=== PATIENT | male | born 1980 | race Caucasian/White ===

== ENCOUNTER 2016-10-18 01:36 | Emergency (ER) | payer MEDICAID ==
[2016-10-18] MEDS ORDERED: Sodium Chloride 0.9% 1,000 ML IV ONE ×2 (01:46→02:33)
[2016-10-18] MEDS ORDERED: Sodium Chloride 0.9% 2.5 ML Syringe FLUSH PRN (01:46)
[2016-10-18] MEDS ORDERED: Sodium Chloride 0.9% 10 ML Syringe FLUSH PRN (01:46)
[2016-10-18] MEDS ORDERED: Ondansetron 4 MG/2 ML SDV IVPUSH ONE (01:48)
--- NOTE | 2016-10-18 01:49 | EDM.PDOC ---
ED HPI GENERAL MEDICAL PROBLEM - General Stated Complaint: RIGHT ABDOMINAL PAIN Time Seen by Provider: 10/18/16 01:44 - History of Present Illness INITIAL COMMENTS - FREE TEXT/NARRATIVE: HISTORY AND PHYSICAL: History of present illness: Patient 35-year-old male who presents with a concern of left-sided abdominal pain 3 and half hours she has similar episode in the past related to constipation patient denies trauma denies urinary symptoms denies history urolithiasis Review of systems: As per history of present illness and below otherwise all systems reviewed and negative. Past medical history: As per history of present illness and as reviewed below otherwise noncontributory. Surgical history: As per history of present illness and as reviewed below otherwise noncontributory. Social history: No reported history of drug or alcohol abuse. Family history: As per history of present illness and as reviewed below otherwise noncontributory. Physical exam: HEENT: Atraumatic, normocephalic, pupils reactive, negative for conjunctival pallor or scleral icterus, mucous membranes moist, throat clear, neck supple, nontender, trachea midline. Lungs: Clear to auscultation, breath sounds equal bilaterally, chest nontender. Heart: S1S2, regular, negative for clicks, rubs, or JVD. Abdomen: Soft, nondistended, nonlocalized left-sided abdominal tenderness Negative for masses or hepatosplenomegaly. Negative for costovertebral tenderness. Pelvis: Stable nontender. Genitourinary: Deferred. Rectal: Deferred. Extremities: Atraumatic, negative for cords or calf pain. Neurovascular unremarkable. Neuro: Awake, alert, oriented. Cranial nerves II through XII unremarkable. Cerebellum unremarkable. Motor and sensory unremarkable throughout. Exam nonfocal. Diagnostics: CBC CMP lipase UA urine drug screen CT abdomen and pelvis Therapeutics: saline 1 L bolus Zofran 4 mg IV Impression: #1 left-sided abdominal pain Definitive disposition and diagnosis as appropriate pending reevaluation and review of above. - Related Data Allergies Allergy/AdvReac Type Severity Reaction Status Date / Time No Known Allergies Allergy Verified 10/18/16 01:47 Home Meds: Home Meds Acetaminophen [Tylenol] 325 mg PO Q4H #10 tablet 01/12/16 [Rx] Clindamycin HCl 300 mg PO QID #20 capsule 01/12/16 [Rx] Past Medical History - Past Health History Medical/Surgical History: Denies Medical/Surgical History HEENT History: Reports: None Cardiovascular History: Reports: Heart Murmur Other Cardiovascular History: New Dx bicuspid valve- F/U with cardiology pending Respiratory History: Reports: None Gastrointestinal History: Reports: None Genitourinary History: Reports: Renal Calculus Other Genitourinary History: Hx of Kidney stones Musculoskeletal History: Reports: None Neurological History: Reports: None Psychiatric History: Reports: None Endocrine/Metabolic History: Reports: None Hematologic History: Reports: None Immunologic History: Reports: None Oncologic (Cancer) History: Reports: None Dermatologic History: Reports: None - Infectious Disease History Infectious Disease History: Reports: None - Past Surgical History Head Surgeries/Procedures: Reports: None Respiratory Surgical History: Reports: None GI Surgical History: Reports: Appendectomy Male Surgical History: Reports: Renal Calculus Endocrine Surgical History: Reports: None Musculoskeletal Surgical History: Reports: None Dermatological Surgical History: Reports: None Social & Family History - Family History Family Medical History: Noncontributory - Tobacco Use Smoking Status *Q: Current Some Day Smoker Years of Tobacco use: 6 Packs/Tins Daily: 0.5 Used Tobacco, but Quit: No Second Hand Smoke Exposure: Yes - Recreational Drug Use Recreational Drug Use: Yes Drug Use in Last 12 Months: Yes Recreational Drug Type: Reports: Marijuana/Hashish Recreational Drug Use Frequency: Weekly ED ROS GENERAL - Review of Systems Review Of Systems: ROS reveals no pertinent complaints other than HPI. ED EXAM, GENERAL - Physical Exam Exam: See Below (See dictation) Course - Orders/Labs/Meds Orders: Active Orders 24 hr Category Date Time Status Abdomen Pelvis wo Cont [CT] Stat Exams 10/18/16 01:46 Taken HYDROmorphone [Dilaudid] Med 10/18/16 02:33 Active 1 mg IVPUSH ONETIME PRN Sodium Chloride 0.9% [Normal Saline] 1,000 ml Med 10/18/16 02:33 Active IV .Bolus Sodium Chloride 0.9% [Saline Flush] Med 10/18/16 01:46 Active 10 ml FLUSH ASDIRECTED PRN Sodium Chloride 0.9% [Saline Flush] Med 10/18/16 01:46 Active 2.5 ml FLUSH ASDIRECTED PRN Saline Lock Insert [OM.PC] Stat Oth 10/18/16 01:46 Ordered Medication Orders Hydromorphone HCl (Dilaudid) 1 mg IVPUSH ONETIME PRN PRN Reason: severe pain Sodium Chloride (Normal Saline) 1,000 mls @ 999 mls/hr IV .Bolus ONE Stop: 10/18/16 03:33 Last Admin: 10/18/16 02:44 Dose: 999 mls/hr Sodium Chloride (Saline Flush) 10 ml FLUSH ASDIRECTED PRN PRN Reason: Keep Vein Open Last Admin: 10/18/16 01:58 Dose: 10 ml Sodium Chloride (Saline Flush) 2.5 ml FLUSH ASDIRECTED PRN PRN Reason: Keep Vein Open Last Admin: 10/18/16 01:57 Dose: 2.5 ml Labs: Laboratory Tests 10/18/16 10/18/16 10/18/16 Range/Units 01:45 01:45 02:38 WBC 7.99 (4.0-11.0) K/uL RBC 4.78 (4.50-5.90) M/uL Hgb 14.4 (13.0-17.0) g/dL Hct 39.8 (38.0-50.0) % MCV 83.3 (80.0-98.0) fL MCH 30.1 (27.0-32.0) pg MCHC 36.2 (31.0-37.0) g/dL RDW Std Deviation 36.4 (28.0-62.0) fl RDW Coeff of Peyton 12 (11.0-15.0) % Plt Count 220 (150-400) K/uL MPV 10.40 (7.40-12.00) fL Neut % (Auto) 59.7 (48.0-80.0) % Lymph % (Auto) 25.8 (16.0-40.0) % King % (Auto) 8.1 (0.0-15.0) % Eos % (Auto) 5.5 (0.0-7.0) % Baso % (Auto) 0.9 (0.0-1.5) % Neut # (Auto) 4.8 (1.4-5.7) K/uL Lymph # (Auto) 2.1 (0.6-2.4) K/uL King # (Auto) 0.7 (0.0-0.8) K/uL Eos # (Auto) 0.4 (0.0-0.7) K/uL Baso # (Auto) 0.1 (0.0-0.1) K/uL Sodium 139 (136-146) mmol/L Potassium 3.9 (3.5-5.1) mmol/L Chloride 106 (98-110) mmol/L Carbon Dioxide 24 (21-31) mmol/L BUN 12 (6.0-23.0) mg/dL Creatinine 1.2 (0.6-1.5) mg/dL Est Cr Clr Drug Dosing 82.33 mL/min Estimated GFR (MDRD) > 60.0 ml/min Glucose 116 H (60-110) mg/dL Calcium 8.9 (8.8-10.8) mg/dL Total Bilirubin 0.3 (0.1-1.5) mg/dL AST 13 (5-40) IU/L ALT 12 (8-54) IU/L Alkaline Phosphatase 74 (40-150) Total Protein 6.8 (6.0-8.0) g/dL Albumin 4.2 (3.5-5.0) g/dL Globulin 2.6 (2.0-3.5) g/dL Albumin/Globulin Ratio 1.6 (1.3-2.8) Lipase 383 H (7-80) U/L Urine Color Urine Appearance Urine pH (5.0-8.0) Ur Specific [place] (1.001-1.035) Urine Protein (NEGATIVE) mg/dL Urine Glucose (UA) (NEGATIVE) mg/dL Urine Ketones (NEGATIVE) mg/dL Urine Occult Blood (NEGATIVE) Urine Nitrite (NEGATIVE) Urine Bilirubin (NEGATIVE) Urine Urobilinogen (<2.0) EU/dL Ur Leukocyte Esterase (NEGATIVE) Urine RBC (0-2/HPF) Urine WBC (0-5/HPF) Ur Epithelial Cells (NONE-FEW) Urine Bacteria (NEGATIVE) Urine Mucus (NONE-MOD) Urine Opiates Screen NEGATIVE (NEGATIVE) Ur Oxycodone Screen NEGATIVE (NEGATIVE) Urine Methadone Screen NEGATIVE (NEGATIVE) Ur Barbiturates Screen NEGATIVE (NEGATIVE) Ur Phencyclidine Scrn NEGATIVE (NEGATIVE) Ur Amphetamine Screen NEGATIVE (NEGATIVE) U Methamphetamines Scrn POSITIVE (NEGATIVE) U Benzodiazepines Scrn NEGATIVE (NEGATIVE) U Cocaine Metab Screen NEGATIVE (NEGATIVE) U Marijuana (THC) Screen NEGATIVE (NEGATIVE) 10/18/16 Range/Units 02:38 WBC (4.0-11.0) K/uL RBC (4.50-5.90) M/uL Hgb (13.0-17.0) g/dL Hct (38.0-50.0) % MCV (80.0-98.0) fL MCH (27.0-32.0) pg MCHC (31.0-37.0) g/dL RDW Std Deviation (28.0-62.0) fl RDW Coeff of Peyton (11.0-15.0) % Plt Count (150-400) K/uL MPV (7.40-12.00) fL Neut % (Auto) (48.0-80.0) % Lymph % (Auto) (16.0-40.0) % King % (Auto) (0.0-15.0) % Eos % (Auto) (0.0-7.0) % Baso % (Auto) (0.0-1.5) % Neut # (Auto) (1.4-5.7) K/uL Lymph # (Auto) (0.6-2.4) K/uL King # (Auto) (0.0-0.8) K/uL Eos # (Auto) (0.0-0.7) K/uL Baso # (Auto) (0.0-0.1) K/uL Sodium (136-146) mmol/L Potassium (3.5-5.1) mmol/L Chloride (98-110) mmol/L Carbon Dioxide (21-31) mmol/L BUN (6.0-23.0) mg/dL Creatinine (0.6-1.5) mg/dL Est Cr Clr Drug Dosing mL/min Estimated GFR (MDRD) ml/min Glucose (60-110) mg/dL Calcium (8.8-10.8) mg/dL Total Bilirubin (0.1-1.5) mg/dL AST (5-40) IU/L ALT (8-54) IU/L Alkaline Phosphatase (40-150) Total Protein (6.0-8.0) g/dL Albumin (3.5-5.0) g/dL Globulin (2.0-3.5) g/dL Albumin/Globulin Ratio (1.3-2.8) Lipase (7-80) U/L Urine Color YELLOW Urine Appearance CLEAR Urine pH 5.5 (5.0-8.0) Ur Specific [place] 1.015 (1.001-1.035) Urine Protein TRACE (NEGATIVE) mg/dL Urine Glucose (UA) NEGATIVE (NEGATIVE) mg/dL Urine Ketones NEGATIVE (NEGATIVE) mg/dL Urine Occult Blood LARGE H (NEGATIVE) Urine Nitrite NEGATIVE (NEGATIVE) Urine Bilirubin NEGATIVE (NEGATIVE) Urine Urobilinogen 0.2 (<2.0) EU/dL Ur Leukocyte Esterase NEGATIVE (NEGATIVE) Urine RBC 6-10 (0-2/HPF) Urine WBC 0-1 (0-5/HPF) Ur Epithelial Cells RARE (NONE-FEW) Urine Bacteria RARE (NEGATIVE) Urine Mucus LIGHT (NONE-MOD) Urine Opiates Screen (NEGATIVE) Ur Oxycodone Screen (NEGATIVE) Urine Methadone Screen (NEGATIVE) Ur Barbiturates Screen (NEGATIVE) Ur Phencyclidine Scrn (NEGATIVE) Ur Amphetamine Screen (NEGATIVE) U Methamphetamines Scrn (NEGATIVE) U Benzodiazepines Scrn (NEGATIVE) U Cocaine Metab Screen (NEGATIVE) U Marijuana (THC) Screen (NEGATIVE) Meds: Medications Generic Name Dose Route Start Last Admin Trade Name Freq PRN Reason Stop Dose Admin Hydromorphone HCl 1 mg 10/18/16 02:33 Dilaudid IVPUSH ONETIME PRN severe pain Sodium Chloride 1,000 mls @ 999 mls/hr 10/18/16 02:33 10/18/16 02:44 Normal Saline IV 10/18/16 03:33 999 mls/hr .Bolus ONE Administration Sodium Chloride 10 ml 10/18/16 01:46 10/18/16 01:58 Saline Flush FLUSH 10 ml ASDIRECTED PRN Administration Keep Vein Open Sodium Chloride 2.5 ml 10/18/16 01:46 10/18/16 01:57 Saline Flush FLUSH 2.5 ml ASDIRECTED PRN Administration Keep Vein Open Discontinued Medications Generic Name Dose Route Start Last Admin Trade Name Freq PRN Reason Stop Dose Admin Sodium Chloride 1,000 mls @ 999 mls/hr 10/18/16 01:46 10/18/16 01:57 Normal Saline IV 10/18/16 02:46 999 mls/hr STAT ONE Administration Ketorolac Tromethamine 30 mg 10/18/16 02:33 10/18/16 02:44 Toradol IVPUSH 10/18/16 02:34 30 mg ONETIME ONE Administration Ondansetron HCl 4 mg 10/18/16 01:48 10/18/16 01:58 Zofran IVPUSH 10/18/16 01:49 4 mg ONETIME ONE Administration Tamsulosin HCl 0.4 mg 10/18/16 02:39 10/18/16 02:49 Flomax PO 10/18/16 02:40 0.4 mg ONETIME ONE Administration Departure - Departure Time of Disposition: 03:04 Disposition: Home, Self-Care 01 Condition: Good Clinical Impression: Ureterolithiasis - Discharge Information Additional Instructions: The following information is given to patients seen in the emergency department who are being discharged to home. This information is to outline your options for follow-up care. We provide all patients seen in our emergency department with a follow-up referral. The need for follow-up, as well as the timing and circumstances, are variable depending upon the specifics of your emergency department visit. If you don't have a primary care physician on staff, we will provide you with a referral. We always advise you to contact your personal physician following an emergency department visit to inform them of the circumstance of the visit and for follow-up with them and/or the need for any referrals to a consulting specialist. The emergency department will also refer you to a specialist when appropriate. This referral assures that you have the opportunity for followup care with a specialist. All of these measure are taken in an effort to provide you with optimal care, which includes your followup. Under all circumstances we always encourage you to contact your private physician who remains a resource for coordinating your care. When calling for followup care, please make the office aware that this follow-up is from your recent emergency room visit. If for any reason you are refused follow-up, please contact the [facility] emergency department at and asked to speak to the emergency department charge nurse. Follow-up urology as discussed called to schedule appointment Flomax Ultram Zofran as prescribed return as needed as discussed - My Orders Last 24 Hours: My Active Orders 10/18/16 01:46 Abdomen Pelvis wo Cont [CT] Stat Sodium Chloride 0.9% [Saline Flush] 10 ml FLUSH ASDIRECTED PRN Sodium Chloride 0.9% [Saline Flush] 2.5 ml FLUSH ASDIRECTED PRN Saline Lock Insert [OM.PC] Stat 10/18/16 02:33 HYDROmorphone [Dilaudid] 1 mg IVPUSH ONETIME PRN Sodium Chloride 0.9% [Normal Saline] 1,000 ml IV .Bolus - Assessment/Plan Last 24 Hours: My Active Orders 10/18/16 01:46 Abdomen Pelvis wo Cont [CT] Stat Sodium Chloride 0.9% [Saline Flush] 10 ml FLUSH ASDIRECTED PRN Sodium Chloride 0.9% [Saline Flush] 2.5 ml FLUSH ASDIRECTED PRN Saline Lock Insert [OM.PC] Stat 10/18/16 02:33 HYDROmorphone [Dilaudid] 1 mg IVPUSH ONETIME PRN Sodium Chloride 0.9% [Normal Saline] 1,000 ml IV .Bolus
[2016-10-18 02:18] LABS: CHLORIDE,CL 106 mmol/L (98-110); SODIUM,NA 139 mmol/L (136-146)
[2016-10-18] MEDS ORDERED: HYDROmorphone 2 MG/ML Syringe IVPUSH PRN (02:33)
[2016-10-18] MEDS ORDERED: Ketorolac 30 MG/ML SDV IVPUSH ONE (02:33)
[2016-10-18] MEDS ORDERED: Tamsulosin 0.4 MG Cap.ER PO ONE (02:39)
[2016-10-18 03:38] VITALS: BP 137/84
--- NOTE | 2016-10-18 17:25 | CT ---
EXAM DATE: 10/18/16 PATIENT'S AGE: 35 Patient: MAHSA SORENSEN Facility: [place], [place] Site . Site : 1980 Study: CT Abdomen/Pelvis wo cont [id number] 2:09:20 AM Ordering Physician: Josh Rodriguez Final Report: INDICATION: Abdominal pain left TECHNIQUE: CT abdomen and pelvis acquired without i.v. contrast. Coronal and sagittal reformats were obtained. COMPARISON: 01/10/2015 FINDINGS: Lower chest: Calcification of the aortic valve noted without interval change. Liver: Unremarkable. Spleen: Unremarkable. Pancreas: Unremarkable. Gallbladder and bile ducts: Unremarkable. Kidneys: There is a 6 mm stone present in the mid left ureter causing moderate left renal pelvicaliectasis. Punctate 1 mm stones are noted in the mid zone and lower poles of the left kidney. Very tiny densities in the right kidney measuring less than 1 mm. Adrenal glands: Unremarkable. GI tract: Mild sigmoid diverticulosis is present with no evidence of diverticulitis. The appendix is not identified. Vascular: Unremarkable. Lymph nodes: Unremarkable. Miscellaneous: Unremarkable. No pneumoperitoneum is seen. No significant ascites is noted. Pelvic Organs: Unremarkable. Bones: Unremarkable for age. IMPRESSION: 1. There is a 6 mm stone present in the mid left ureter causing moderate left renal pelvicaliectasis. Dictated by Reno Rothman MD @ 10/18/2016 2:27:11 AM Dictated by: Reno Rothman MD @ 10/18/2016 02:27:16 (Electronic Signature) Report Signed by Proxy. DESTINI
== END 2016-10-18 03:38 | disposition home or self-care (01) ==
LOC: MW.ED 01:36
DX: N20.1 Calculus of ureter (principal); F17.210 Nicotine dependence, cigarettes, uncomplicated; Z90.49 Acquired absence of other specified parts of digestive tract
CPT/HCPCS: 74176; 80053; 80305; 81001; 83690; 85025; 96361; 96374; 96375; 99284; A9270; J1885; J2405; J7040; 99283

== ENCOUNTER 2016-10-18 15:30 | Emergency (ER) | payer MEDICAID ==
[2016-10-18] MEDS ORDERED: Sodium Chloride 0.9% 1,000 ML IV ONE (16:10)
[2016-10-18] MEDS ORDERED: Ketorolac 30 MG/ML SDV IVPUSH ONE (16:10)
--- NOTE | 2016-10-18 16:29 | EDM.PDOC ---
ED HPI GENERAL MEDICAL PROBLEM - General Chief Complaint: Abdominal Pain Stated Complaint: ABDOMINAL PAIN Time Seen by Provider: 10/18/16 16:00 Source of Information: Reports: Patient History Limitations: Reports: No Limitations - History of Present Illness INITIAL COMMENTS - FREE TEXT/NARRATIVE: History of present illness: [35-year-old male comes in complaining of abdominal and flank pain. Was seen last night and diagnosed with nonobstructive renal calculi. Patient presenting today with increased symptoms and desire for further evaluation] Review of systems: As per history of present illness and below otherwise all systems reviewed and negative. Past medical history: As per history of present illness and as reviewed below otherwise noncontributory. Surgical history: As per history of present illness and as reviewed below otherwise noncontributory. Social history: No reported history of drug or alcohol abuse. Family history: As per history of present illness and as reviewed below otherwise noncontributory. Physical exam: HEENT: Atraumatic, normocephalic, pupils reactive, negative for conjunctival pallor or scleral icterus, mucous membranes moist, throat clear, neck supple, nontender, trachea midline. Lungs: Clear to auscultation, breath sounds equal bilaterally, chest nontender. Heart: S1S2, regular, negative for clicks, rubs, or JVD. Abdomen: Soft, nondistended, nontender. Negative for masses or hepatosplenomegaly. Negative for costovertebral tenderness. Pelvis: Stable nontender. Genitourinary: Deferred. Rectal: Deferred. Extremities: Atraumatic, negative for cords or calf pain. Neurovascular unremarkable. Neuro: Awake, alert, oriented. Cranial nerves II through XII unremarkable. Cerebellum unremarkable. Motor and sensory unremarkable throughout. Exam nonfocal. Spoke with patient at length he indicated the Toradol had helped his discomfort and that he understood that he had needed to follow-up with urology and he intends to do so tomorrow. Indicates that he is ready to go home. Diagnostics: [] Therapeutics: [IV fluids, Toradol] Impression: [Nonobstructive uropathy] Plan: [Hydrate, follow up with urology has been provided (last night)] Definitive disposition and diagnosis as appropriate pending reevaluation and review of above. abdomen Pain Score (Numeric/FACES): 6 - Related Data Allergies Allergy/AdvReac Type Severity Reaction Status Date / Time No Known Allergies Allergy Verified 10/18/16 15:33 Home Meds: Home Meds Ondansetron [Zofran] 4 mg PO ASDIRECTED 10/18/16 [History] Tamsulosin [Flomax] 0 tab PO DAILY 10/18/16 [History] traMADol HCl [Ultram] 50 mg PO ASDIRECTED 10/18/16 [History] Past Medical History - Past Health History Medical/Surgical History: Denies Medical/Surgical History HEENT History: Reports: None Cardiovascular History: Reports: Heart Murmur Other Cardiovascular History: New Dx bicuspid valve- F/U with cardiology pending Respiratory History: Reports: None Gastrointestinal History: Reports: None Genitourinary History: Reports: Renal Calculus Other Genitourinary History: Hx of Kidney stones Musculoskeletal History: Reports: None Neurological History: Reports: None Psychiatric History: Reports: None Endocrine/Metabolic History: Reports: None Hematologic History: Reports: None Immunologic History: Reports: None Oncologic (Cancer) History: Reports: None Dermatologic History: Reports: None - Infectious Disease History Infectious Disease History: Reports: None - Past Surgical History Head Surgeries/Procedures: Reports: None Respiratory Surgical History: Reports: None GI Surgical History: Reports: Appendectomy Male Surgical History: Reports: Renal Calculus Endocrine Surgical History: Reports: None Musculoskeletal Surgical History: Reports: None Dermatological Surgical History: Reports: None Social & Family History - Family History Family Medical History: Noncontributory - Tobacco Use Smoking Status *Q: Current Every Day Smoker Years of Tobacco use: 6 Packs/Tins Daily: 1 Used Tobacco, but Quit: No Second Hand Smoke Exposure: Yes - Recreational Drug Use Recreational Drug Use: Yes Drug Use in Last 12 Months: Yes Recreational Drug Type: Reports: Marijuana/Hashish Recreational Drug Use Frequency: Weekly ED ROS GENERAL - Review of Systems Review Of Systems: See Below (History of present illness) ED EXAM, GENERAL - Physical Exam Exam: See Below (History of present illness) Course - Vital Signs Last Recorded V/S: Last Vital Signs Temp 36.6 C 10/18/16 15:37 Pulse 80 10/18/16 15:37 Resp 18 10/18/16 15:37 BP 133/70 10/18/16 15:37 Pulse Ox 75 L 10/18/16 15:37 - Orders/Labs/Meds Orders: Active Orders 24 hr Category Date Time Status UA W/MICROSCOPIC [URIN] Stat Lab 10/18/16 18:00 Received Meds: Medications Discontinued Medications Generic Name Dose Route Start Last Admin Trade Name Priscila PRN Reason Stop Dose Admin Sodium Chloride 1,000 mls @ 999 mls/hr 10/18/16 16:10 10/18/16 16:24 Normal Saline IV 10/18/16 17:10 999 mls/hr STAT ONE Administration Ketorolac Tromethamine 30 mg 10/18/16 16:10 10/18/16 16:23 Toradol IVPUSH 10/18/16 16:11 30 mg ONETIME ONE Administration Departure - Departure Time of Disposition: 18:10 Disposition: Home, Self-Care 01 Condition: Good Clinical Impression: Ureteric colic - Discharge Information Forms: ED Department Discharge Additional Instructions: The following information is given to patients seen in the emergency department who are being discharged to home. This information is to outline your options for follow-up care. We provide all patients seen in our emergency department with a follow-up referral. The need for follow-up, as well as the timing and circumstances, are variable depending upon the specifics of your emergency department visit. If you don't have a primary care physician on staff, we will provide you with a referral. We always advise you to contact your personal physician following an emergency department visit to inform them of the circumstance of the visit and for follow-up with them and/or the need for any referrals to a consulting specialist. The emergency department will also refer you to a specialist when appropriate. This referral assures that you have the opportunity for follow-up care with a specialist. All of these measure are taken in an effort to provide you with optimal care, which includes your follow-up. Under all circumstances we always encourage you to contact your private physician who remains a resource for coordinating your care. When calling for follow-up care, please make the office aware that this follow-up is from your recent emergency room visit. If for any reason you are refused follow-up, please contact the [facility] Emergency Department at and asked to speak to the emergency department charge nurse. Continue to hydrate as discussed Follow-up with urology that was provided to last night Return to ED as needed as discussed - My Orders Last 24 Hours: My Active Orders 10/18/16 18:00 UA W/MICROSCOPIC [URIN] Stat - Assessment/Plan Last 24 Hours: My Active Orders 10/18/16 18:00 UA W/MICROSCOPIC [URIN] Stat
[2016-10-18 18:25] VITALS: BP 125/70
== END 2016-10-18 18:23 | disposition home or self-care (01) ==
LOC: MW.ED 15:30
DX: N39.9 Disorder of urinary system, unspecified (principal); N23 Unspecified renal colic; F17.210 Nicotine dependence, cigarettes, uncomplicated; Z79.899 Other long term (current) drug therapy; Z87.442 Personal history of urinary calculi; Z90.49 Acquired absence of other specified parts of digestive tract
CPT/HCPCS: 81001; 96361; 96374; 99284; J1885; J7040; 99282

== ENCOUNTER 2019-03-16 11:28 | Emergency (ER) | payer BC, MEDICAID ==
[2019-03-16] MEDS ORDERED: Lidocaine 2% Viscous Solution 15 ML Cup PO ONE (11:32)
[2019-03-16] MEDS ORDERED: Benzocaine 20% Topical Spray UD MUCMEM ONE (11:32)
--- NOTE | 2019-03-16 11:32 | EDM.PDOC ---
ED HPI GENERAL MEDICAL PROBLEM - General Stated Complaint: TOOTH PAIN Time Seen by Provider: 03/16/19 11:29 Source of Information: Reports: Patient History Limitations: Reports: No Limitations - History of Present Illness INITIAL COMMENTS - FREE TEXT/NARRATIVE: HISTORY AND PHYSICAL: History of present illness: Patient is a 38-year-old male who presents to the emergency room today with complaints of dental pain. He states that he felt a piece of his tooth in the posterior right molar break off, previously had already a partial fracture of that tooth. Since then he has had some redness and tenderness along the gumline. He is concerned that this is now infected. He states he did call and make a dental appointment in [place] to have dental extraction. Unable to be seen until next week. Patient denies any fever, chills, headache, change in vision, syncope or near syncope. Denies any chest pain, back pain, shortness of breath or cough. Denies any GI or symptoms. Patient has been eating and drinking appropriately. Review of systems: As per history of present illness and below otherwise all systems reviewed and negative. Past medical history: As per history of present illness and as reviewed below otherwise noncontributory. Surgical history: As per history of present illness and as reviewed below otherwise noncontributory. Social history: See social history for further information Family history: As per history of present illness and as reviewed below otherwise noncontributory. Physical exam: General: Well-developed and well-nourished 38-year-old male. Alert and oriented. Nontoxic appearing and in no acute distress. HEENT: Atraumatic, normocephalic, pupils equal and reactive bilaterally, negative for conjunctival pallor or scleral icterus, mucous membranes moist, TMs normal bilaterally, throat clear, neck supple, nontender, trachea midline. No drooling or trismus noted. No meningeal signs. No hot potato voice noted. Lungs: Clear to auscultation, breath sounds equal bilaterally, chest nontender. Heart: S1S2, regular rate and rhythm without overt murmur Abdomen: Soft, nondistended, nontender. Skin: Intact, warm, dry. No lesions or rashes noted. Extremities: Atraumatic, moves all extremities per self without difficulty or deficits, negative for cords or calf pain. Neurovascular unremarkable. Neuro: Awake, alert, oriented. Cranial nerves II through XII unremarkable. Cerebellum unremarkable. Motor and sensory unremarkable throughout. Exam nonfocal. Notes: We discussed the importance of following up with his dentist. Supportive care measures were reviewed and discussed. Voices understanding and is agreeable to plan of care. Denies any further questions or concerns at this time. Diagnostics: None Therapeutics: Dental Balls Prescription: Clindamycin Ultram (#20) Impression: Broken tooth r/o dental abscess Plan: 1. Please take the antibiotic as prescribed. 2. Tylenol and/or ibuprofen as needed for pain management. "Tooth Balls" have been given to you; apply along the gumline every 2-3 hours as needed. Do not swallow these; external use only. 3. Follow-up with a dentist for definitive care. Return to the ED as needed and as discussed. Definitive disposition and diagnosis as appropriate pending reevaluation and review of above. - Related Data Allergies Allergy/AdvReac Type Severity Reaction Status Date / Time No Known Allergies Allergy Verified 10/18/16 15:33 Home Meds: Home Meds Acetaminophen [Tylenol] 03/16/19 [History] Clindamycin HCl 300 mg PO TID 10 Days #30 capsule 03/16/19 [Rx] Ibuprofen 03/16/19 [History] traMADol [Ultram] 50 mg PO Q4H PRN #20 tab 03/16/19 [Rx] Past Medical History - Past Health History Medical/Surgical History: Denies Medical/Surgical History HEENT History: Reports: None Cardiovascular History: Reports: Heart Murmur Other Cardiovascular History: New Dx bicuspid valve- F/U with cardiology pending Respiratory History: Reports: None Gastrointestinal History: Reports: None Genitourinary History: Reports: Renal Calculus Other Genitourinary History: Hx of Kidney stones Musculoskeletal History: Reports: None Neurological History: Reports: None Psychiatric History: Reports: None Endocrine/Metabolic History: Reports: None Hematologic History: Reports: None Immunologic History: Reports: None Oncologic (Cancer) History: Reports: None Dermatologic History: Reports: None - Infectious Disease History Infectious Disease History: Reports: None - Past Surgical History Head Surgeries/Procedures: Reports: None Respiratory Surgical History: Reports: None GI Surgical History: Reports: Appendectomy Male Surgical History: Reports: Renal Calculus Endocrine Surgical History: Reports: None Musculoskeletal Surgical History: Reports: None Dermatological Surgical History: Reports: None Social & Family History - Family History Family Medical History: Noncontributory ED ROS ENT - Review of Systems Review Of Systems: Comprehensive ROS is negative, except as noted in HPI. ED EXAM, ENT - Physical Exam Exam: See Below (See dictation) Course - Vital Signs Last Recorded V/S: Last Vital Signs Temp 95.1 F L 03/16/19 11:42 Pulse 66 03/16/19 11:42 Resp 18 03/16/19 11:42 BP 141/71 H 03/16/19 11:42 Pulse Ox 96 03/16/19 11:42 - Orders/Labs/Meds Meds: Medications Discontinued Medications Generic Name Dose Route Start Last Admin Trade Name Freq PRN Reason Stop Dose Admin Benzocaine 2 each 03/16/19 11:32 Hurricaine One 20% MUCMEM 03/16/19 11:33 ONETIME ONE Lidocaine HCl 15 ml 03/16/19 11:32 Xylocaine 2% Viscous PO 03/16/19 11:33 ONETIME ONE Departure - Departure Time of Disposition: 11:47 Disposition: Home, Self-Care 01 Clinical Impression: Dental abscess Broken tooth Qualifiers: Encounter type: initial encounter Fracture type: closed Qualified Code(s): S02.5XXA - Fracture of tooth (traumatic), initial encounter for closed fracture - Discharge Information Prescriptions: Clindamycin HCl 300 mg PO TID 10 Days #30 capsule traMADol [Ultram] 50 mg PO Q4H PRN #20 tab PRN Reason: Pain Instructions: Dental Abscess, [id number] Additional Instructions: The following information is given to patients seen in the emergency department who are being discharged to home. This information is to outline your options for follow-up care. We provide all patients seen in our emergency department with a follow-up referral. The need for follow-up, as well as the timing and circumstances, are variable depending upon the specifics of your emergency department visit. If you don't have a primary care physician on staff, we will provide you with a referral. We always advise you to contact your personal physician following an emergency department visit to inform them of the circumstance of the visit and for follow-up with them and/or the need for any referrals to a consulting specialist. The emergency department will also refer you to a specialist when appropriate. This referral assures that you have the opportunity for follow-up care with a specialist. All of these measure are taken in an effort to provide you with optimal care, which includes your follow-up. Under all circumstances we always encourage you to contact your private physician who remains a resource for coordinating your care. When calling for follow-up care, please make the office aware that this follow-up is from your recent emergency room visit. If for any reason you are refused follow-up, please contact the [facility] Emergency Department at and asked to speak to the emergency department charge nurse. [facility] [address] [place] [id number] [id number] 1. Please take the antibiotic as prescribed. 2. Tylenol and/or ibuprofen as needed for pain management. "Tooth Balls" have been given to you; apply along the gumline every 2-3 hours as needed. Do not swallow these; external use only. 3. Follow-up with a dentist for definitive care. Return to the ED as needed and as discussed.
[2019-03-16 12:00] VITALS: BP 142/75; PULSE 60
== END 2019-03-16 12:04 | disposition home or self-care (01) ==
LOC: MW.ED 11:28
DX: K04.7 Periapical abscess without sinus (principal); K03.81 Cracked tooth
CPT/HCPCS: 99282; A9270; 99283

== ENCOUNTER 2019-11-25 05:00 | Emergency (ER) | payer SELFPAY ==
[2019-11-25] MEDS ORDERED: Ondansetron 4 MG/2 ML SDV IVPUSH ONE (05:14)
[2019-11-25] MEDS ORDERED: Alum Hydrox/Mag Hydrox/Simeth 15 ML, Lidocaine 2% 5 ML PO ONE ×2 (05:14)
[2019-11-25] MEDS ORDERED: Sodium Chloride 0.9% 2.5 ML Syringe FLUSH PRN (05:14)
[2019-11-25] MEDS ORDERED: Pantoprazole 40 MG in Sodium Chloride 0.9% 10 ML IV ONE (05:14)
[2019-11-25] MEDS ORDERED: Sodium Chloride 0.9% 10 ML Syringe FLUSH PRN (05:14)
--- NOTE | 2019-11-25 05:19 | EDM.PDOC ---
ED HPI GENERAL MEDICAL PROBLEM - General Chief Complaint: Abdominal Pain Stated Complaint: ABDOMINAL PAIN Time Seen by Provider: 11/25/19 05:10 - History of Present Illness INITIAL COMMENTS - FREE TEXT/NARRATIVE: HISTORY AND PHYSICAL: History of present illness: This is a 39-year-old gentleman who presents ER today secondary to left upper quadrant abdominal pain started at 3 in the morning. Patient denies any recent fevers, shakes, chills, vomiting or diarrhea. Patient reports he does feel nauseous secondary to the abdominal pain. Patient has any dysuria frequency urgency. Patient has any melena or bright red blood per rectum. Patient denies any hematuria. Patient has any recent cough cold or runny nose. Patient denies any history of hypertension, diabetes, liver, lung, kidney problems. Patient reports he did have a kidney stone in the past that required stents. Patient is status post an appendectomy. Patient denies any tobacco alcohol or drugs other than marijuana. Patient has no known drug allergies. Review of systems: As per history of present illness and below otherwise all systems reviewed and negative. Past medical history: As per history of present illness and as reviewed below otherwise noncontributory. Surgical history: As per history of present illness and as reviewed below otherwise noncontributory. Social history: No reported history of drug or alcohol abuse. Family history: As per history of present illness and as reviewed below otherwise noncontributory. Physical exam: Constitutional: Patient is oriented to person, place, and time. Appears well- developed and well-nourished. No distress. HEENT: Moist mucous membranes Head: Normocephalic and atraumatic Eyes: Right eye exhibits no discharge. Left eye exhibits no discharge. No scleral icterus Neck: Normal range of motion. No tracheal deviation present. Cardiovascular: Normal rate and regular rhythm. Pulmonary: Effort normal, no respiratory distress. Abd: Soft, nondistended, no rebound/guarding, no psoas or obturator signs, no tenderness at Mcberney's point, no Natarajan's sign. Pt does not present with an exam that would be consistent with an acute surgical abdomen at this time. Tender to palpation left upper quadrant and midepigastric region. Musculoskeletal: Normal range of motion Neurologic: Alert and oriented to person, place and time. Skin: [place], warm and dry. Psychiatric: Normal mood and affect. Behavior is normal. Judgment and thought content normal. Nursing note and vital signs have been reviewed Diagnostics: CBC, CMP, troponin, EKG, lipase, UA. CT abdomen pelvis without contrast Therapeutics: GI cocktail Protonix Zofran NSS 6:02 AM: Patient reevaluated and reports that the medication he was given is significantly reduced he discomfort in his left upper quadrant. I have reviewed the blood test results with the patient. Thus far all his labs look within normal limits. We are still awaiting his CT scan of the abdomen pelvis. 6:34 AM: CT scan reports no significant abnormality identified in the abdomen or pelvis. Patient reevaluated and reports discussed with the patient. Patient reports he feels much better and feels comfortable with going home at this time. Assessment and plan: 39-year-old who presents the ER today with sudden onset of acute left upper quadrant abdominal discomfort that occurred at approximately 3 AM. Patient's pain is nonexertional and occurred while he was resting. Pain does not appear to be typical for cardiac origin. CT scan rule out ruptured viscus. Patient reports significant improvement with GI cocktail and Protonix. Patient will be discharged home with a prescription for Zofran as well as Prilosec for treatment of possible gastritis. Patient currently is feeling much more comfortable and is resting. Reassessment at the time of disposition demonstrates that the patient is in no acute distress. The patient has remained stable throughout the entire ED visit and is without objective evidence for acute process requiring urgent intervention or hospitalization. The patient is stable for discharge, counseling is provided as documented above, discussed symptomatic treatment and specific conditions for return. I have spoken with the patient/caregive and discussed todays findings, in addition to providing specific details for the plan of care. Questions are answered and there is agreement with the plan. Definitive disposition and diagnosis as appropriate pending reevaluation and review of above. abdomen Pain Score (Numeric/FACES): 5 - Related Data Allergies Allergy/AdvReac Type Severity Reaction Status Date / Time No Known Allergies Allergy Verified 11/25/19 05:13 Home Meds: Home Meds Omeprazole Magnesium [Prilosec Otc] 20 mg PO BID #30 tablet. 11/25/19 [Rx] Ondansetron [Zofran ODT] 4 mg PO Q6H PRN #12 tab.dis 11/25/19 [Rx] Past Medical History - Past Health History Medical/Surgical History: Denies Medical/Surgical History HEENT History: Reports: None Cardiovascular History: Reports: Heart Murmur Other Cardiovascular History: New Dx bicuspid valve- F/U with cardiology pending Respiratory History: Reports: None Gastrointestinal History: Reports: None Genitourinary History: Reports: Renal Calculus Other Genitourinary History: Hx of Kidney stones Musculoskeletal History: Reports: None Neurological History: Reports: None Psychiatric History: Reports: None Endocrine/Metabolic History: Reports: None Hematologic History: Reports: None Immunologic History: Reports: None Oncologic (Cancer) History: Reports: None Dermatologic History: Reports: None - Infectious Disease History Infectious Disease History: Reports: None - Past Surgical History Head Surgeries/Procedures: Reports: None Respiratory Surgical History: Reports: None GI Surgical History: Reports: Appendectomy Male Surgical History: Reports: Renal Calculus Endocrine Surgical History: Reports: None Musculoskeletal Surgical History: Reports: None Dermatological Surgical History: Reports: None Social & Family History - Family History Family Medical History: Noncontributory ED ROS GENERAL - Review of Systems Review Of Systems: Comprehensive ROS is negative, except as noted in HPI. ED EXAM, GENERAL - Physical Exam Exam: See Below EKG INTERPRETATION EKG Interpretation Comments: EKG: Normal sinus bradycardia heart rate of [address]-T wave abnormalities Normal axis No evidence of ST elevation MD As interpreted by ER physician: Calvin Britton - Vital Signs Last Recorded V/S: Last Vital Signs Temp 96.5 F L 11/25/19 05:04 Pulse 50 L 11/25/19 06:25 Resp 18 11/25/19 05:04 BP 108/60 11/25/19 06:25 Pulse Ox 96 11/25/19 06:25 - Orders/Labs/Meds Orders: Active Orders 24 hr Category Date Time Status EKG Documentation Completion [RC] STAT Care 11/25/19 05:18 Active Sodium Chloride 0.9% [Saline Flush] Med 11/25/19 05:14 Active 10 ml FLUSH ASDIRECTED PRN Sodium Chloride 0.9% [Saline Flush] Med 11/25/19 05:14 Active 2.5 ml FLUSH ASDIRECTED PRN Saline Lock Insert [OM.PC] Stat Oth 11/25/19 05:14 Ordered Medication Orders Sodium Chloride (Saline Flush) 10 ml FLUSH ASDIRECTED PRN PRN Reason: Keep Vein Open Sodium Chloride (Saline Flush) 2.5 ml FLUSH ASDIRECTED PRN PRN Reason: Keep Vein Open Labs: Laboratory Tests 11/25/19 11/25/19 11/25/19 Range/Units 05:13 05:13 05:13 WBC 5.94 (4.0-11.0) K/uL RBC 5.04 (4.50-5.90) M/uL Hgb 15.1 (13.0-17.0) g/dL Hct 43.5 (38.0-50.0) % MCV 86.3 (80.0-98.0) fL MCH 30.0 (27.0-32.0) pg MCHC 34.7 (31.0-37.0) g/dL RDW Std Deviation 39.0 (28.0-62.0) fl RDW Coeff of Peyton 13 (11.0-15.0) % Plt Count 184 (150-400) K/uL MPV 10.00 (7.40-12.00) fL Neut % (Auto) 38.2 L (48.0-80.0) % Lymph % (Auto) 41.1 H (16.0-40.0) % [place] % (Auto) 10.6 (0.0-15.0) % Eos % (Auto) 8.9 H (0.0-7.0) % Baso % (Auto) 1.2 (0.0-1.5) % Neut # (Auto) 2.3 (1.4-5.7) K/uL Lymph # (Auto) 2.4 (0.6-2.4) K/uL [place] # (Auto) 0.6 (0.0-0.8) K/uL Eos # (Auto) 0.5 (0.0-0.7) K/uL Baso # (Auto) 0.1 (0.0-0.1) K/uL D-Dimer, Quantitative < 0.19 (0.0-0.50) mg/L FEU Sodium 137 (136-148) mmol/L Potassium 4.5 (3.5-5.1) mmol/L Chloride 104 (98-107) mmol/L Carbon Dioxide 30.4 (21.0-32.0) mmol/L BUN 16 (7.0-18.0) mg/dL Creatinine 1.1 (0.8-1.3) mg/dL Est Cr Clr Drug Dosing 89.27 mL/min Estimated GFR (MDRD) > 60.0 ml/min Glucose 103 (74-106) mg/dL Calcium 8.6 (8.5-10.1) mg/dL Total Bilirubin 0.1 L (0.2-1.0) mg/dL AST 13 L (15-37) IU/L ALT 22 (14-63) IU/L Alkaline Phosphatase 64 (46-116) U/L Troponin I < 0.050 (0.000-0.056) ng/mL Total Protein 7.2 (6.4-8.2) g/dL Albumin 3.9 (3.4-5.0) g/dL Globulin 3.3 (2.6-4.0) g/dL Albumin/Globulin Ratio 1.2 (0.9-1.6) Lipase 260 (73-393) U/L Urine Color Urine Appearance Urine pH (5.0-8.0) Ur Specific [place] (1.001-1.035) Urine Protein (NEGATIVE) mg/dL Urine Glucose (UA) (NEGATIVE) mg/dL Urine Ketones (NEGATIVE) mg/dL Urine Occult Blood (NEGATIVE) Urine Nitrite (NEGATIVE) Urine Bilirubin (NEGATIVE) Urine Urobilinogen (<2.0) EU/dL Ur Leukocyte Esterase (NEGATIVE) 11/25/19 Range/Units 05:18 WBC (4.0-11.0) K/uL RBC (4.50-5.90) M/uL Hgb (13.0-17.0) g/dL Hct (38.0-50.0) % MCV (80.0-98.0) fL MCH (27.0-32.0) pg MCHC (31.0-37.0) g/dL RDW Std Deviation (28.0-62.0) fl RDW Coeff of [place] (11.0-15.0) % Plt Count (150-400) K/uL MPV (7.40-12.00) fL Neut % (Auto) (48.0-80.0) % Lymph % (Auto) (16.0-40.0) % [place] % (Auto) (0.0-15.0) % Eos % (Auto) (0.0-7.0) % Baso % (Auto) (0.0-1.5) % Neut # (Auto) (1.4-5.7) K/uL Lymph # (Auto) (0.6-2.4) K/uL [place] # (Auto) (0.0-0.8) K/uL Eos # (Auto) (0.0-0.7) K/uL Baso # (Auto) (0.0-0.1) K/uL D-Dimer, Quantitative (0.0-0.50) mg/L FEU Sodium (136-148) mmol/L Potassium (3.5-5.1) mmol/L Chloride (98-107) mmol/L Carbon Dioxide (21.0-32.0) mmol/L BUN (7.0-18.0) mg/dL Creatinine (0.8-1.3) mg/dL Est Cr Clr Drug Dosing mL/min Estimated GFR (MDRD) ml/min Glucose (74-106) mg/dL Calcium (8.5-10.1) mg/dL Total Bilirubin (0.2-1.0) mg/dL AST (15-37) IU/L ALT (14-63) IU/L Alkaline Phosphatase (46-116) U/L Troponin I (0.000-0.056) ng/mL Total Protein (6.4-8.2) g/dL Albumin (3.4-5.0) g/dL Globulin (2.6-4.0) g/dL Albumin/Globulin Ratio (0.9-1.6) Lipase (73-393) U/L Urine Color YELLOW Urine Appearance CLEAR Urine pH 6.5 (5.0-8.0) Ur Specific [place] 1.025 (1.001-1.035) Urine Protein NEGATIVE (NEGATIVE) mg/dL Urine Glucose (UA) NEGATIVE (NEGATIVE) mg/dL Urine Ketones NEGATIVE (NEGATIVE) mg/dL Urine Occult Blood NEGATIVE (NEGATIVE) Urine Nitrite NEGATIVE (NEGATIVE) Urine Bilirubin NEGATIVE (NEGATIVE) Urine Urobilinogen 0.2 (<2.0) EU/dL Ur Leukocyte Esterase NEGATIVE (NEGATIVE) Meds: Medications Generic Name Dose Route Start Last Admin Trade Name Freq PRN Reason Stop Dose Admin Sodium Chloride 10 ml 11/25/19 05:14 Saline Flush FLUSH ASDIRECTED PRN Keep Vein Open Sodium Chloride 2.5 ml 11/25/19 05:14 Saline Flush FLUSH ASDIRECTED PRN Keep Vein Open Discontinued Medications Generic Name Dose Route Start Last Admin Trade Name Priscila PRN Reason Stop Dose Admin Al Hydroxide/Mg Hydroxide 15 0 ml 11/25/19 05:14 11/25/19 05:24 ml/ Lidocaine HCl 5 ml PO 11/25/19 05:15 1 each ONETIME ONE Administration Pantoprazole Sodium 40 mg/ 10 mls @ 300 mls/hr 11/25/19 05:14 11/25/19 05:27 Sodium Chloride IV 11/25/19 05:15 300 mls/hr NOW ONE Administration Ondansetron HCl 4 mg 11/25/19 05:14 11/25/19 05:24 Zofran IVPUSH 11/25/19 05:15 4 mg ONETIME ONE Administration Departure - Departure Time of Disposition: 06:35 Disposition: Home, Self-Care 01 Condition: Good Clinical Impression: Abdominal pain, Gastritis - Discharge Information Instructions: Gastritis, Adult, [id number], Abdominal Pain, Adult, [id number] Referrals: PCP,None [Primary Care Provider] - Forms: ED Department Discharge Additional Instructions: Although the etiology of your abdominal pain today is not completely clear, we have been able to eliminate any life-threatening causes of the pain with the blood tests and imaging that we have performed today. The pain appears to be most likely related to gastritis or early ulcer disease. You will be started on Prilosec to help coat your stomach as well as Zofran to help you with the symptoms of nausea. Please follow-up with your family doctor for referral to see a cytology laboratory manager if these pains persist. The following information is given to patients seen in the emergency department who are being discharged to home. This information is to outline your options for follow-up care. We provide all patients seen in our emergency department with a follow-up referral. The need for follow-up, as well as the timing and circumstances, are variable depending upon the specifics of your emergency department visit. If you don't have a primary care physician on staff, we will provide you with a referral. We always advise you to contact your personal physician following an emergency department visit to inform them of the circumstance of the visit and for follow-up with them and/or the need for any referrals to a consulting specialist. The emergency department will also refer you to a specialist when appropriate. This referral assures that you have the opportunity for follow-up care with a specialist. All of these measure are taken in an effort to provide you with optimal care, which includes your follow-up. Under all circumstances we always encourage you to contact your private physician who remains a resource for coordinating your care. When calling for follow-up care, please make the office aware that this follow-up is from your recent emergency room visit. If for any reason you are refused follow-up, please contact the [facility] Emergency Department at and asked to speak to the emergency department charge nurse. Parveen Jenn [facility] - [facility] Medicine [address] [place] [id number] Sepsis Event Note (ED) - Evaluation Sepsis Screening Result: No Definite Risk - Focused Exam Vital Signs: Vital Signs Temp Pulse Resp BP Pulse Ox 11/25/19 06:25 50 L 108/60 96 11/25/19 05:04 96.5 F L 65 18 145/88 H 98 - My Orders Last 24 Hours: My Active Orders 11/25/19 05:14 Sodium Chloride 0.9% [Saline Flush] 10 ml FLUSH ASDIRECTED PRN Sodium Chloride 0.9% [Saline Flush] 2.5 ml FLUSH ASDIRECTED PRN Saline Lock Insert [OM.PC] Stat 11/25/19 05:18 EKG Documentation Completion [RC] STAT - Assessment/Plan Last 24 Hours: My Active Orders 11/25/19 05:14 Sodium Chloride 0.9% [Saline Flush] 10 ml FLUSH ASDIRECTED PRN Sodium Chloride 0.9% [Saline Flush] 2.5 ml FLUSH ASDIRECTED PRN Saline Lock Insert [OM.PC] Stat 11/25/19 05:18 EKG Documentation Completion [RC] STAT
[2019-11-25 05:46] LABS: BLOOD UREA NITROGEN,BUN 16 mg/dL (7.0-18.0); CARBON DIOXIDE,CO2 30.4 mmol/L (21.0-32.0); CHLORIDE,CL 104 mmol/L (98-107); GLUCOSE RANDOM 103 mg/dL (74-106); LIPASE 260 U/L (73-393); POTASSIUM,K 4.5 mmol/L (3.5-5.1); SODIUM,NA 137 mmol/L (136-148)
--- NOTE | 2019-11-25 06:29 | CT ---
INDICATION: Left upper quadrant abdominal pain. TECHNIQUE: CT of the abdomen and pelvis without intravenous contrast. Coronal and sagittal reconstructions. COMPARISON: CT of the abdomen and pelvis 10/18/2016. FINDINGS: The previously seen left ureteral stone is no longer present. No obstructing urinary calculi on today`s exam. There are few tiny 1-2 mm nonobstructing renal caliceal stones bilaterally. No hydronephrosis or ureteral dilation. The unenhanced bladder and prostate are normal in appearance. New mild hepatomegaly measuring 22.5 cm in length today compared to 20 cm previously. The liver is increased in density compared to the spleen which can be seen with iron deposition disorders and use of certain medications. New mild splenomegaly measuring 14 cm in length today compared to 11 cm previously. The unenhanced gallbladder, pancreas, and adrenal glands are normal in appearance. No bowel dilation. The appendix is not identified, however there are no secondary signs of inflammation in the right lower quadrant. No intraperitoneal free air or fluid. No lymphadenopathy. The bones are unremarkable. The lung bases are clear. Mitral annulus calcification. IMPRESSION: 1. No acute findings in the abdomen or pelvis on this noncontrast exam. 2. Resolution of the previously seen left ureteral stone. 3. Few tiny bilateral nonobstructing renal caliceal stones. No obstructing urinary calculi on today`s exam. 4. New mild hepatosplenomegaly. 5. The liver is increased in density compared to the spleen which can be seen with iron deposition disorders and use of certain medications. Correlate with patient history. Please note that all CT scans at this facility use dose modulation, iterative reconstruction, and/or weight-based dosing when appropriate to reduce radiation dose to as low as reasonably achievable. Dictated by Anabela Glez MD @ Nov 25 2019 6:14AM Signed by Dr. Anabela Glez @ Nov 25 2019 6:27AM
[2019-11-25 07:00] VITALS: BP 122/77; PULSE 63
== END 2019-11-25 06:48 | disposition home or self-care (01) ==
LOC: MW.ED 05:00
DX: K29.70 Gastritis, unspecified, without bleeding (principal); Z79.899 Other long term (current) drug therapy
CPT/HCPCS: 36415; 74176; 80053; 81003; 83690; 84484; 85025; 85379; 93005; 96374; 96375; 99284; A9270; C9113; J2405; J7050

== ENCOUNTER 2020-02-10 13:11 | Emergency (ER) | payer SELFPAY ==
[2020-02-10] MEDS ORDERED: Acetaminophen/HYDROcodone 325-5 MG Tab PO ONE (13:34)
--- NOTE | 2020-02-10 14:33 | EDM.PDOC ---
ED HPI GENERAL MEDICAL PROBLEM - General Chief Complaint: General Stated Complaint: TOOTH ACHE Time Seen by Provider: 02/10/20 13:27 Source of Information: Reports: Patient History Limitations: Reports: No Limitations - History of Present Illness INITIAL COMMENTS - FREE TEXT/NARRATIVE: Patient is a 39-year-old male who presents today for tooth pain bilaterally. Patient also now having pain in his throat. Patient also complains of difficulty swallowing with pain as well. Patient denies any fever chills nausea vomiting. Onset: Sudden Location: Reports: Face Quality: Reports: Ache Severity: Moderate Improves with: Reports: None Worsens with: Reports: None Treatments HR RECRUITER: Reports: NSAIDS dental, throat Pain Score (Numeric/FACES): 8 - Related Data Allergies Allergy/AdvReac Type Severity Reaction Status Date / Time No Known Allergies Allergy Verified 02/10/20 13:21 Home Meds: Home Meds Acetaminophen/oxyCODONE [Percocet 325-5 MG] 1 each PO Q6HR PRN 4 Days #16 tab 02/10/20 [Rx] Amoxicillin/Clavulanate K [Augmentin 875-125 MG] 1 tab PO Q12HR 7 Days #24 tablet 02/10/20 [Rx] Past Medical History - Past Health History Medical/Surgical History: Denies Medical/Surgical History HEENT History: Reports: None Cardiovascular History: Reports: Heart Murmur Other Cardiovascular History: New Dx bicuspid valve- F/U with cardiology pending Respiratory History: Reports: None Gastrointestinal History: Reports: None Genitourinary History: Reports: Renal Calculus Other Genitourinary History: Hx of Kidney stones Musculoskeletal History: Reports: None Neurological History: Reports: None Psychiatric History: Reports: None Endocrine/Metabolic History: Reports: None Hematologic History: Reports: None Immunologic History: Reports: None Oncologic (Cancer) History: Reports: None Dermatologic History: Reports: None - Infectious Disease History Infectious Disease History: Reports: None - Past Surgical History Head Surgeries/Procedures: Reports: None Respiratory Surgical History: Reports: None GI Surgical History: Reports: Appendectomy Male Surgical History: Reports: Renal Calculus Endocrine Surgical History: Reports: None Musculoskeletal Surgical History: Reports: None Dermatological Surgical History: Reports: None Social & Family History - Family History Family Medical History: Noncontributory - Tobacco Use Tobacco Use Status *Q: Former Tobacco User Years of Tobacco use: 20 Packs/Tins Daily: 1.5 Used Tobacco, but Quit: Yes Month/Year Tobacco Last Used: 5 weeks ago - Caffeine Use Caffeine Use: Reports: Coffee - Recreational Drug Use Recreational Drug Use: Yes Drug Use in Last 12 Months: Yes Recreational Drug Type: Reports: Marijuana/Hashish Recreational Drug Use Frequency: Weekly ED ROS GENERAL - Review of Systems Review Of Systems: Comprehensive ROS is negative, except as noted in HPI. Constitutional: Reports: No Symptoms HEENT: Reports: Dental Pain Respiratory: Reports: No Symptoms Cardiovascular: Reports: No Symptoms Endocrine: Reports: No Symptoms GI/Abdominal: Reports: No Symptoms Musculoskeletal: Reports: No Symptoms Skin: Reports: No Symptoms Neurological: Reports: No Symptoms Psychiatric: Reports: No Symptoms Hematologic/Lymphatic: Reports: No Symptoms ED EXAM, GENERAL - Physical Exam Exam: See Below Exam Limited By: No Limitations General Appearance: Alert, WD/WN Throat/Mouth: No: Normal Teeth (poor dentention ) Respiratory/Chest: No Respiratory Distress Cardiovascular: Regular Rate, Rhythm Extremities: Normal Inspection Neurological: Alert, Oriented, Normal Cognition, Normal Gait Course - Vital Signs Last Recorded V/S: Last Vital Signs Temp 96 F L 02/10/20 13:19 Pulse 87 02/10/20 13:19 Resp 18 02/10/20 13:19 BP 164/110 H 02/10/20 13:19 Pulse Ox 97 02/10/20 13:19 - Orders/Labs/Meds Labs: Laboratory Tests 02/10/20 02/10/20 02/10/20 Range/Units 14:08 14:08 14:08 WBC 6.74 (4.0-11.0) K/uL RBC 5.36 (4.50-5.90) M/uL Hgb 15.9 (13.0-17.0) g/dL Hct 45.6 (38.0-50.0) % MCV 85.1 (80.0-98.0) fL MCH 29.7 (27.0-32.0) pg MCHC 34.9 (31.0-37.0) g/dL RDW Std Deviation 40.2 (28.0-62.0) fl RDW Coeff of Peyton 13 (11.0-15.0) % Plt Count 197 (150-400) K/uL MPV 9.80 (7.40-12.00) fL Neut % (Auto) 48.5 (48.0-80.0) % Lymph % (Auto) 34.0 (16.0-40.0) % [place] % (Auto) 8.3 (0.0-15.0) % Eos % (Auto) 8.2 H (0.0-7.0) % Baso % (Auto) 1.0 (0.0-1.5) % Neut # (Auto) 3.3 (1.4-5.7) K/uL Lymph # (Auto) 2.3 (0.6-2.4) K/uL [place] # (Auto) 0.6 (0.0-0.8) K/uL Eos # (Auto) 0.6 (0.0-0.7) K/uL Baso # (Auto) 0.1 (0.0-0.1) K/uL Nucleated RBC % 0.0 /100WBC Nucleated RBCs # 0 K/uL Lactate 1.3 (0.20-2.00) mmol/L Sodium 137 (136-148) mmol/L Potassium 4.8 (3.5-5.1) mmol/L Chloride 103 (98-107) mmol/L Carbon Dioxide 26.5 (21.0-32.0) mmol/L BUN 19 H (7.0-18.0) mg/dL Creatinine 1.0 (0.8-1.3) mg/dL Est Cr Clr Drug Dosing 98.19 mL/min Estimated GFR (MDRD) > 60.0 ml/min Glucose 95 (74-106) mg/dL Calcium 9.4 (8.5-10.1) mg/dL C-Reactive Protein <0.20 (0.00-0.90) mg/dL Meds: Medications Discontinued Medications Generic Name Dose Route Start Last Admin Trade Name Freq PRN Reason Stop Dose Admin Hydrocodone Bitart/Acetaminophen 1 tab 02/10/20 13:34 02/10/20 14:14 [place] 325-5 Mg PO 02/10/20 13:35 1 tab ONETIME ONE Administration Departure - Departure Time of Disposition: 17:00 Disposition: Home, Self-Care 01 Condition: Good Clinical Impression: Apical abscess, Dental caries - Discharge Information *PRESCRIPTION DRUG MONITORING PROGRAM REVIEWED*: No *COPY OF PRESCRIPTION DRUG MONITORING REPORT IN PATIENT ISABELL: No Prescriptions: Amoxicillin/Clavulanate K [Augmentin 875-125 MG] 1 tab PO Q12HR 7 Days #24 tablet Acetaminophen/oxyCODONE [Percocet 325-5 MG] 1 each PO Q6HR PRN 4 Days #16 tab PRN Reason: Pain (Severe 7-10) Instructions: Dental Abscess, [id number] Referrals: PCP,None [Primary Care Provider] - 2 Days ([facility] Address: [address] [place] [address] [address] [place] [id number] ) Forms: ED Department Discharge Sepsis Event Note (ED) - Evaluation Sepsis Screening Result: No Definite Risk - Focused Exam Vital Signs: Vital Signs Temp Pulse Resp BP Pulse Ox 02/10/20 13:19 96 F L 87 18 164/110 H 97 - Assessment/Plan Plan: She is a 39-year-old male presents today for bilateral tooth pain no lower rolls of his teeth. Patient has some tenderness on gumlines and also complained of pain in the pain with swallowing. Will obtain labs and CAT scan to rule out any abscess. Patient also provided pain control as well. Patient CT scan reviewed past couple abscess. Patient started antibiotics provided pain control will be given follow-up with [facility].
[2020-02-10 14:47] LABS: BLOOD UREA NITROGEN,BUN 19 mg/dL (7.0-18.0); CARBON DIOXIDE,CO2 26.5 mmol/L (21.0-32.0); CHLORIDE,CL 103 mmol/L (98-107); GLUCOSE RANDOM 95 mg/dL (74-106); POTASSIUM,K 4.8 mmol/L (3.5-5.1); SODIUM,NA 137 mmol/L (136-148)
--- NOTE | 2020-02-10 16:53 | CT ---
INDICATION: Swelling and pain to neck and jaw. CT FACE AND NECK WITH CONTRAST TECHNIQUE: Axial multidetector CT imaging was performed through the face and neck following intravenous contrast administration using 100 mL Isovue 370. Coronal and sagittal reconstructions were generated. FINDINGS: No convincing soft tissue inflammatory changes are demonstrated. There is no evidence of a soft tissue abscess. No abnormal enlarged lymph nodes are seen. There are multiple missing teeth and numerous caries lesions involving the remaining teeth. There is abnormal lucency in the bone about the tips of the roots of the anterior-most of the remaining 2 lower right molars (images 35-36, series 204), and abnormal lucency about the tips of the roots of the anterior-most of the 3 lower left molars (image 63, series 204), which could represent small periapical dental abscesses. No abnormally enlarged lymph nodes are identified. The included airway is within normal limits. The parotid, submandibular, and thyroid glands are unremarkable. Cervical vascular structures are within normal limits. The orbits and their contents are unremarkable. 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 The other paranasal sinuses are normally developed and normally aerated. No fractures are seen. Included skull base and lung apices are unremarkable. IMPRESSION: 1. Extensive dental caries and possible small periapical dental abscesses involving bilateral lower molars, as detailed above. 2. No evidence of soft tissue abscess. BOBBY REID MD [facility] Dictated by Oswaldo Reid MD @ 02/10/2020 4:46:34 PM Dictated by: Oswaldo Reid MD @ 02/10/2020 16:52:42 (Electronically Signed)
[2020-02-10] MEDS ORDERED: Iopamidol 755 MG/ML 500 ML Multipack Bottle IVPUSH STA (17:19)
[2020-02-10 17:21] VITALS: BP 106/69; PULSE 68
== END 2020-02-10 17:21 | disposition home or self-care (01) ==
LOC: MW.ED 13:11
DX: K04.7 Periapical abscess without sinus (principal); K02.9 Dental caries, unspecified; Z87.891 Personal history of nicotine dependence
CPT/HCPCS: 36415; 70487; 70491; 80048; 83605; 85025; 86140; 99284; A9270; Q9967; 99283

== ENCOUNTER 2020-09-17 19:40 | Emergency (ER) | payer SELFPAY ==
--- NOTE | 2020-09-17 19:51 | EDM.PDOC ---
ED HPI GENERAL MEDICAL PROBLEM - General Chief Complaint: Chest Pain Stated Complaint: CHEST PAINS Time Seen by Provider: 09/17/20 19:48 - History of Present Illness INITIAL COMMENTS - FREE TEXT/NARRATIVE: History of present illness: [] Experienced a sudden pain in the epigastrium at 1:30 PM. Associated with diaphoresis nausea and vomiting. Its not worse with exertion. Its past and down to a level 5 out of 10 after it had initially been very severe. Now it is tolerable to him. He is no longer diaphoretic. He never was short of breath. This patient is seen by Dr. Schmid for a bicuspid aortic valve. It has not limited his activity or ability to work and do heavy work. He is a smoker and in the last month is cut down quite a bit because of his concerns for his heart. He is not diabetic but has a family history of diabetes. Review of systems: As per history of present illness and below otherwise all systems reviewed and negative. Past medical history: As per history of present illness and as reviewed below otherwise noncontributory. Surgical history: As per history of present illness and as reviewed below otherwise noncontributory. Social history: No reported history of drug or alcohol abuse. Family history: As per history of present illness and as reviewed below otherwise noncontributory. Physical exam: Constitutional - well developed, well-nourished and in no acute distress HEENT - normocephalic, no evidence of trauma - external nose and mouth normal - no mass in neck and no JVD - mucosae moist EYES - full EOM, PERRL, no icterus - no evidence of inflammation, injection, or drainage Respiratory - no respiratory distress, equal bilateral expansion, lungs clear to auscultation and no abnormal lung sounds Cardiovascular - Regular Rhythm with S1 and S2 appreciated and no murmur, gallop or rub. GI -there is tenderness in the epigastrium. He reproduces his pain. Abdomen soft without distension or organomegaly - normal bowel sounds - no guard or rebound Musculoskeletal no gross deformity of long bones or joints - no tenderness, swelling or edema Neurologic - Alert and oriented times four - CN II-XII grossly intact - motor sensory and coordination symmetrically normal Psychiatric - appropriate mood and affect with normal thought content Hematologic - No petechiae or purpura - mucosa appropriate color and sclera not pale - normal nail bed color and refill Integument - no rash or evidence of trauma - normal turgor Diagnostics: [] Therapeutics: [] Impression: [] Plan: [] Definitive disposition and diagnosis as appropriate pending reevaluation and review of above. midsternal Pain Score (Numeric/FACES): 7 - Related Data Allergies Allergy/AdvReac Type Severity Reaction Status Date / Time No Known Allergies Allergy Verified 09/17/20 19:45 Home Meds: Home Meds QUEtiapine [SEROquel] 25 mg PO DAILY 09/17/20 [History] Pantoprazole [ProTONIX] 40 mg PO DAILY #60 tab.cr 09/18/20 [Rx] Past Medical History - Past Health History Medical/Surgical History: Denies Medical/Surgical History HEENT History: Reports: None Cardiovascular History: Reports: Heart Murmur Other Cardiovascular History: New Dx bicuspid valve Respiratory History: Reports: None Gastrointestinal History: Reports: None Genitourinary History: Reports: Renal Calculus Other Genitourinary History: Hx of Kidney stones Musculoskeletal History: Reports: None Neurological History: Reports: None Psychiatric History: Reports: None Endocrine/Metabolic History: Reports: None Hematologic History: Reports: None Immunologic History: Reports: None Oncologic (Cancer) History: Reports: None Dermatologic History: Reports: None - Infectious Disease History Infectious Disease History: Reports: None - Past Surgical History Head Surgeries/Procedures: Reports: None Cardiovascular Surgical History: Reports: None Respiratory Surgical History: Reports: None GI Surgical History: Reports: Appendectomy Male Surgical History: Reports: Renal Calculus Endocrine Surgical History: Reports: None Musculoskeletal Surgical History: Reports: None Dermatological Surgical History: Reports: None Social & Family History - Family History Family Medical History: No Pertinent Family History - Caffeine Use Caffeine Use: Reports: None - Recreational Drug Use Recreational Drug Use: Yes Recreational Drug Type: Reports: Marijuana/Hashish ED ROS GENERAL - Review of Systems Review Of Systems: Comprehensive ROS is negative, except as noted in HPI. ED EXAM, GENERAL - Physical Exam Exam: See Below Free Text/Narrative:: My physical exam is in the HPI #1 Interpretation EKG Interpretation Comments: EKG performed at 1940 hrs. shows a sinus rhythm with a heart rate of 76 and a [place] interval of 168. QT duration is 429 in the P wave size suggest possible left atrial enlargement. The axis is 79. There is no unusual T morphology in V1. This is compared to 11/25/[address] elevation present on the prior EKG is not as prominent now. Impression no acute injury. Course - Vital Signs Text/Narrative:: Patient's heart score is 1. Patient's discharge after second enzymes. Last Recorded V/S: Last Vital Signs Temp 36.6 C 09/17/20 19:43 Pulse 68 09/17/20 20:28 Resp 16 09/17/20 20:28 BP 126/75 09/17/20 20:28 Pulse Ox 97 09/17/20 20:28 - Orders/Labs/Meds Orders: Active Orders 24 hr Category Date Time Status EKG Documentation Completion [RC] AM Care 09/17/20 20:01 Active Sodium Chloride 0.9% [Saline Flush] Med 09/17/20 20:01 Active 10 ml FLUSH ASDIRECTED PRN Sodium Chloride 0.9% [Saline Flush] Med 09/17/20 20:01 Active 2.5 ml FLUSH ASDIRECTED PRN Saline Lock Insert [OM.PC] Stat Oth 09/17/20 20:01 Ordered Medication Orders Sodium Chloride (Sodium Chloride 0.9% 10 Ml Syringe) 10 ml FLUSH ASDIRECTED PRN PRN Reason: Keep Vein Open Sodium Chloride (Sodium Chloride 0.9% 2.5 Ml Syringe) 2.5 ml FLUSH ASDIRECTED PRN PRN Reason: Keep Vein Open Labs: Laboratory Tests 09/17/20 09/17/20 09/17/20 Range/Units 19:50 19:50 23:22 WBC 6.16 (4.0-11.0) K/uL RBC 4.81 (4.50-5.90) M/uL Hgb 14.7 (13.0-17.0) g/dL Hct 41.0 (38.0-50.0) % MCV 85.2 (80.0-98.0) fL MCH 30.6 (27.0-32.0) pg MCHC 35.9 (31.0-37.0) g/dL RDW Std Deviation 39.9 (28.0-62.0) fl RDW Coeff of Peyton 13 (11.0-15.0) % Plt Count 199 (150-400) K/uL MPV 10.30 (7.40-12.00) fL Neut % (Auto) 35.3 L (48.0-80.0) % Lymph % (Auto) 44.6 H (16.0-40.0) % [place] % (Auto) 9.3 (0.0-15.0) % Eos % (Auto) 9.7 H (0.0-7.0) % Baso % (Auto) 1.1 (0.0-1.5) % Neut # (Auto) 2.2 (1.4-5.7) K/uL Lymph # (Auto) 2.8 H (0.6-2.4) K/uL [place] # (Auto) 0.6 (0.0-0.8) K/uL Eos # (Auto) 0.6 (0.0-0.7) K/uL Baso # (Auto) 0.1 (0.0-0.1) K/uL Nucleated RBC % 0.0 /100WBC Nucleated RBCs # 0 K/uL Sodium 139 (136-148) mmol/L Potassium 3.6 (3.5-5.1) mmol/L Chloride 105 (98-107) mmol/L Carbon Dioxide 23.0 (21.0-32.0) mmol/L BUN 12 (7.0-18.0) mg/dL Creatinine 1.0 (0.8-1.3) mg/dL Est Cr Clr Drug Dosing TNP Estimated GFR (MDRD) > 60.0 ml/min Glucose 96 (74-106) mg/dL Calcium 9.1 (8.5-10.1) mg/dL Total Bilirubin 0.3 (0.2-1.0) mg/dL AST 16 (15-37) IU/L ALT 25 (14-63) IU/L Alkaline Phosphatase 69 (46-116) U/L Troponin I < 0.050 < 0.050 (0.000-0.056) ng/mL Total Protein 7.1 (6.4-8.2) g/dL Albumin 3.9 (3.4-5.0) g/dL Globulin 3.2 (2.6-4.0) g/dL Albumin/Globulin Ratio 1.2 (0.9-1.6) Lipase 199 (73-393) U/L Meds: Medications Generic Name Dose Route Start Last Admin Trade Name Freq PRN Reason Stop Dose Admin Sodium Chloride 10 ml 09/17/20 20:01 Sodium Chloride 0.9% 10 Ml Syringe FLUSH ASDIRECTED PRN Keep Vein Open Sodium Chloride 2.5 ml 09/17/20 20:01 Sodium Chloride 0.9% 2.5 Ml Syringe FLUSH ASDIRECTED PRN Keep Vein Open Discontinued Medications Generic Name Dose Route Start Last Admin Trade Name Freq PRN Reason Stop Dose Admin Al Hydroxide/Mg Hydroxide 15 0 ml 09/17/20 20:01 09/17/20 20:22 ml/ Lidocaine HCl 5 ml PO 09/17/20 20:02 1 each ONETIME ONE Administration Pantoprazole Sodium 40 mg/ 10 mls @ 300 mls/hr 09/17/20 20:01 09/17/20 20:22 Sodium Chloride IV 09/17/20 20:02 300 mls/hr NOW ONE Administration Ondansetron HCl 4 mg 09/17/20 20:01 09/17/20 20:24 Ondansetron 4 Mg/2 Ml Sdv IVPUSH 09/17/20 20:02 4 mg ONETIME ONE Administration Departure - Departure Time of Disposition: 00:08 Disposition: Home, Self-Care 01 Condition: Good Clinical Impression: Epigastric pain, Gastritis - Discharge Information Instructions: Nonspecific Chest Pain, Adult, [id number], Gastritis, Adult, [id number] Referrals: PCP,None [Primary Care Provider] - Forms: ED Department Discharge Additional Instructions: Call your maintenance mechanic engine and tell them you were here and had 2 - enzymes but may need further work-up. [facility] - Primary Care [address] [place] [id number] [id number] The following information is given to patients seen in the emergency department who are being discharged to home. This information is to outline your options for follow-up care. We provide all patients seen in our emergency department with a follow-up referral. The need for follow-up, as well as the timing and circumstances, are variable depending upon the specifics of your emergency department visit. If you don't have a primary care physician on staff, we will provide you with a referral. We always advise you to contact your personal physician following an emergency department visit to inform them of the circumstance of the visit and for follow-up with them and/or the need for any referrals to a consulting specialist. The emergency department will also refer you to a specialist when appropriate. This referral assures that you have the opportunity for follow-up care with a specialist. All of these measure are taken in an effort to provide you with optimal care, which includes your follow-up. Under all circumstances we always encourage you to contact your private physician who remains a resource for coordinating your care. When calling for follow-up care, please make the office aware that this follow-up is from your recent emergency room visit. If for any reason you are refused follow-up, please contact the [facility] Emergency Department at and asked to speak to the emergency department charge nurse. Sepsis Event Note (ED) - Evaluation Sepsis Screening Result: No Definite Risk - Focused Exam Vital Signs: Vital Signs Temp Pulse Resp BP Pulse Ox 09/17/20 20:28 68 16 126/75 97 09/17/20 19:43 36.6 C 82 20 161/100 H 99 - My Orders Last 24 Hours: My Active Orders 09/17/20 20:01 EKG Documentation Completion [RC] AM Sodium Chloride 0.9% [Saline Flush] 10 ml FLUSH ASDIRECTED PRN Sodium Chloride 0.9% [Saline Flush] 2.5 ml FLUSH ASDIRECTED PRN Saline Lock Insert [OM.PC] Stat - Assessment/Plan Last 24 Hours: My Active Orders 09/17/20 20:01 EKG Documentation Completion [RC] AM Sodium Chloride 0.9% [Saline Flush] 10 ml FLUSH ASDIRECTED PRN Sodium Chloride 0.9% [Saline Flush] 2.5 ml FLUSH ASDIRECTED PRN Saline Lock Insert [OM.PC] Stat
[2020-09-17] MEDS ORDERED: Alum Hydrox/Mag Hydrox/Simeth 15 ML, Lidocaine 2% 5 ML PO ONE ×2 (20:01)
[2020-09-17] MEDS ORDERED: Pantoprazole 40 MG in Sodium Chloride 0.9% 10 ML IV ONE (20:01)
[2020-09-17] MEDS ORDERED: Sodium Chloride 0.9% 2.5 ML Syringe FLUSH PRN (20:01)
[2020-09-17] MEDS ORDERED: Sodium Chloride 0.9% 10 ML Syringe FLUSH PRN (20:01)
[2020-09-17] MEDS ORDERED: Ondansetron 4 MG/2 ML SDV IVPUSH ONE (20:01)
[2020-09-17 20:28] LABS: BLOOD UREA NITROGEN,BUN 12 mg/dL (7.0-18.0); CHLORIDE,CL 105 mmol/L (98-107); GLUCOSE RANDOM 96 mg/dL (74-106); LIPASE 199 U/L (73-393); POTASSIUM,K 3.6 mmol/L (3.5-5.1); SODIUM,NA 139 mmol/L (136-148)
--- NOTE | 2020-09-17 20:29 | CR ---
For Patients: As a result of the Century Cures Act, medical imaging exams and procedure reports are released immediately into your electronic medical record. You may view this report before your referring provider. If you have questions, please contact your health care provider. Indication: Epigastric pain Technique: Chest 1 view Comparison: February 27, 2020 Findings/Impression: Cardiovascular and mediastinum: Heart size and vasculature are normal in caliber and appearance. Mediastinum is within normal limits. Lungs and pleural space: Lungs are clear. No sign of infiltrate or mass. No sign of pleural effusion. No pneumothorax. Bones and soft tissues: No significant findings. Dictated by Lauren Jovel MD @ 09/17/2020 8:28:[address] Lauren Jovel @ Sep 17 2020 8:28PM
[2020-09-18 00:28] VITALS: BP 137/75; PULSE 78
== END 2020-09-18 00:28 | disposition home or self-care (01) ==
LOC: MW.ED 19:40
DX: K29.70 Gastritis, unspecified, without bleeding (principal); Z79.899 Other long term (current) drug therapy
CPT/HCPCS: 36415; 71045; 80053; 83690; 84484; 85025; 93005; 96374; 96375; 99284; A9270; C9113; J2405; 93010

== ENCOUNTER 2020-11-02 17:30 | Emergency (ER) | payer SELFPAY ==
--- NOTE | 2020-11-02 17:55 | EDM.PDOC ---
<Rigo Ko - Last Filed: 11/02/20 17:55> ED HPI GENERAL MEDICAL PROBLEM - General Chief Complaint: General Stated Complaint: LT ARM NUMBNESS Time Seen by Provider: 11/02/20 17:40 Source of Information: Reports: Patient History Limitations: Reports: No Limitations - History of Present Illness INITIAL COMMENTS - FREE TEXT/NARRATIVE: Patient is a 39-year-old male who presents today for left-sided weakness. Patient states that have around 6 AM this morning. Patient walked in here was able answer all questions does have a little bit of a droop on the left side. Patient is moving all extremities good strength states he does feel slightly weak. Reports that he does smoke daily but has no other health problems patient has no other complaints other than weakness. Patient denies any numbness tingling as well. Weakness mostly only in his left arm. - Related Data Allergies Allergy/AdvReac Type Severity Reaction Status Date / Time No Known Allergies Allergy Verified 11/02/20 17:52 Home Meds: Home Meds QUEtiapine [SEROquel] 25 mg PO DAILY 09/17/20 [History] Pantoprazole [ProTONIX] 40 mg PO DAILY #60 tab.cr 09/18/20 [Rx] Naproxen [Naprosyn] 500 mg PO Q12HR PRN #20 tab 11/02/20 [Rx] Past Medical History - Past Health History Medical/Surgical History: Denies Medical/Surgical History HEENT History: Reports: None Cardiovascular History: Reports: Heart Murmur Other Cardiovascular History: New Dx bicuspid valve Respiratory History: Reports: None Gastrointestinal History: Reports: None Genitourinary History: Reports: Renal Calculus Other Genitourinary History: Hx of Kidney stones Musculoskeletal History: Reports: None Neurological History: Reports: None Psychiatric History: Reports: None Endocrine/Metabolic History: Reports: None Hematologic History: Reports: None Immunologic History: Reports: None Oncologic (Cancer) History: Reports: None Dermatologic History: Reports: None - Infectious Disease History Infectious Disease History: Reports: None - Past Surgical History Head Surgeries/Procedures: Reports: None Cardiovascular Surgical History: Reports: None Respiratory Surgical History: Reports: None GI Surgical History: Reports: Appendectomy Male Surgical History: Reports: Renal Calculus Endocrine Surgical History: Reports: None Musculoskeletal Surgical History: Reports: None Dermatological Surgical History: Reports: None Social & Family History - Family History Family Medical History: No Pertinent Family History - Caffeine Use Caffeine Use: Reports: None ED ROS GENERAL - Review of Systems Review Of Systems: See Below Constitutional: Reports: No Symptoms HEENT: Reports: No Symptoms Respiratory: Reports: No Symptoms Cardiovascular: Reports: No Symptoms Endocrine: Reports: No Symptoms GI/Abdominal: Reports: No Symptoms : Reports: No Symptoms Musculoskeletal: Reports: No Symptoms Skin: Reports: No Symptoms Neurological: Reports: No Symptoms Psychiatric: Reports: No Symptoms Hematologic/Lymphatic: Reports: No Symptoms Immunologic: Reports: No Symptoms ED EXAM, GENERAL - Physical Exam Exam: See Below Exam Limited By: No Limitations General Appearance: Alert, WD/WN, No Apparent Distress Head: Atraumatic Respiratory/Chest: No Respiratory Distress, Lungs Clear Cardiovascular: Normal Peripheral Pulses, Regular Rate, Rhythm GI/Abdominal: Normal Bowel Sounds, Soft, Non-Tender Extremities: Normal Inspection, Normal Range of Motion Neurological: Alert, Oriented, CN II-XII Intact, Normal Cognition, Normal Gait #1 Interpretation EKG Date: 11/02/20 Time: 17:43 Rhythm: NSR Rate (Beats/Min): 75 ST-T: Normal Departure - Departure Disposition: Home, Self-Care 01 Clinical Impression: Left arm pain, Arm paresthesia, left, Musculoskeletal pain of left upper extremity - Discharge Information Instructions: Paresthesia, Musculoskeletal Pain Referrals: PCP,None [Primary Care Provider] - Forms: ED Department Discharge - Assessment/Plan Plan: Patient is a 39-year-old male who presents today for left arm weakness. He does have a facial droop on the left. On exam patient has good strength upper and lower 5 out of 5 able to ambulate. NIH stroke scale is 1 for the facial droop. Patient symptoms started this morning at [address] head labs and reassess. <Kwesi Simpson - Last Filed: 11/02/20 19:41> ED HPI GENERAL MEDICAL PROBLEM - History of Present Illness INITIAL COMMENTS - FREE TEXT/NARRATIVE: HISTORY AND PHYSICAL: 7:36 PM: Signout received by me from Dr. Ko. Dr. Ko's report appears to be consistent with nonstroke. He is aspirin to follow the patient's labs and EKGs and symptoms and that he feels that the patient will be stable for discharge if his labs are normal. After evaluating the patient and reviewing the chart I agree with Dr. Ko's assessment that this does not appear to be a stroke. Patient symptoms do not appear to be consistent with acute coronary syndrome and I agree the patient will be stable for discharge to home. We will resume care as outlined by Dr. Ko discharge patient to home with close follow-up with Dr. Schmid. History of present illness: This is a 39-year-old gentleman with a history significant for elevated cholesterol, bicuspid aortic valve, currently being followed by Dr. Schmid and has had a recent echocardiogram and was told that his bicuspid aortic valve is gone from moderate to severe, no history of diabetes, hypertension, liver, lung, kidney problems, who presents to the ER today secondary to severe pain to his left arm with a tingling sensation and numbness to his left hand. Patient reports that he woke up at approximately 7 AM today with severe pain to his left arm that lasted for approximately 2 to 3 minutes. Patient reports that the pain increased with any movement of his left arm. Patient reports that he was having a hard time grasping objects secondary to numbness and paresthesia to his hand. Patient reports that the pain lasted for approximate 2 to 3 minutes and then went away. Patient reports that later during the day he was taking a nap with his 11-year-old daughter when he woke up he was having severe pain in his left arm again. Patient once again reports that the pain lasted for 2 to 3 minutes and then resolved. Patient reports that this happened several times at the course of the day he was concerned that he might be having issues with his heart so he came to the ED for further evaluation. Patient denies any recent fevers, shakes, chills, nausea, vomiting, diarrhea, dysuria, frequency, urgency, chest pain, shortness of breath, back pain, abdominal pain. Patient denies any diaphoresis, nausea, shortness of breath associated with the discomfort. Patient denies any exertional component to the pain. Patient reports that the episodes usually occur while he is not moving and resting. Patient reports that it is exacerbated with movement of his left arm. Patient reports that he has not done any extra exertion over the last couple days and he reports over the weekend he was working with his [id number] on their car and using a ratchet set however he is right-handed and usually uses the ratchet with his right hand not his left hand. Patient denies any weakness to his upper or lower extremities. Patient reports has been able to ambulate without any difficulty. Patient denies any slurring to his speech or facial asymmetry. Patient has any double vision. Patient denies any hearing changes. Patient denies any difficulty with talking or swallowing. Review of systems: As per history of present illness and below otherwise all systems reviewed and negative. Past medical history: As per history of present illness and as reviewed below otherwise noncontributory. Surgical history: As per history of present illness and as reviewed below otherwise noncontributory. Social history: No reported history of drug abuse. Family history: As per history of present illness and as reviewed below otherwise noncontributory. Physical exam: This patient was seen and evaluated during the 2019 SARS-CoV-2 novel coronavirus pandemic period. Community viral transmission is ongoing at time of this encounter and the emergency department is operating under pandemic response procedures. Constitutional: Patient is oriented to person, place, and time. Appears well- developed and well-nourished. No distress. HEENT: Moist mucous membranes Head: Normocephalic and atraumatic Eyes: Right eye exhibits no discharge. Left eye exhibits no discharge. No scleral icterus Neck: Normal range of motion. No tracheal deviation present. Cardiovascular: Normal rate and regular rhythm. Pulmonary: Effort normal, no respiratory distress. Abdominal: No distention Musculoskeletal: Normal range of motion Neuro: A&Ox3. Cranial nerves II-XII grossly intact, 5/5 strength to bilateral upper and lower extremities, sensation intact to bilateral upper and lower extremities except for sensation of paresthesias to his left hand. No nystagmus, PERRLA, EOMI, normal speech, proprioception intact to bilateral lower extremities, normal finger to nose test, gait normal. Patient's cerebellar exam is normal. Patient has normal [id number]. Patient has normal rapid alternating motion. Patient has a normal gait and ambulated into the ED without any difficulty. Skin: [place], warm and dry. Psychiatric: Normal mood and affect. Behavior is normal. Judgment and thought content normal. Nursing note and vital signs have been reviewed Assessment and plan: This is a 39-year-old gentleman who was called as a stroke alert in the ED and has a normal CT scan. Patient's NIH score is 0. Patient reports that he has no facial droop and has had no speech deficits. Patient does have paresthesias to his left hand but not his entirety of his arm. Patient reports that he has pain to his left shoulder and arm that is intermittent, sharp, severe and exacerbated with movement of the left arm but not exacerbated with exertion or walking. Patient's presentation does not appear to be consistent with an acute stroke. Patient was concerned about cardiac etiology. Patient denies any chest pain shortness of breath diaphoresis or other concerning stigmata of acute coronary syndrome. Patient's troponin is negative and his EKG is unremarkable. At this time, I feel that the patient would be stable for discharge home with close outpatient follow-up with Dr. Schmid. Patient has been given a shot of Toradol prior to my taking over the case and he reports that his pain completely subsided after approximately 5 to 10 minutes after the injection. I believe that the patient's pain is more likely secondary to a mechanical musculoskeletal issue given the severe pain with movement of the arm. Patient is neurovascular intact. Patient has no evidence of acute arterial occlusion. Patient has no plethora. Reassessment at the time of disposition demonstrates that the patient is in no acute distress. The patient has remained stable throughout the entire ED visit and is without objective evidence for acute process requiring urgent intervention or hospitalization. The patient is stable for discharge, counseling is provided as documented above, discussed symptomatic treatment and specific conditions for return. I have spoken with the patient/caregiver and discussed todays findings, in addition to providing specific details for the plan of care. Questions are answered and there is agreement with the plan. Definitive disposition and diagnosis as appropriate pending reevaluation and review of above. Left shoulder Pain Score (Numeric/FACES): 5 Course - Vital Signs Last Recorded V/S: Last Vital Signs Temp 97.1 F 11/02/20 17:46 Pulse 60 11/02/20 19:15 Resp 18 11/02/20 19:15 BP 149/96 H 11/02/20 19:15 Pulse Ox 96 11/02/20 19:15 - Orders/Labs/Meds Orders: Active Orders 24 hr Category Date Time Status EKG 12 Lead [EKG Documentation Completion] [RC] STAT Care 11/02/20 17:56 Active DRUG SCREEN, URINE [URCHEM] Stat Lab 11/02/20 19:15 Received Labs: Laboratory Tests 11/02/20 11/02/20 11/02/20 Range/Units 18:05 18:05 18:05 WBC 3.99 L (4.0-11.0) K/uL RBC 4.44 L (4.50-5.90) M/uL Hgb 13.2 (13.0-17.0) g/dL Hct 37.1 L (38.0-50.0) % MCV 83.6 (80.0-98.0) fL MCH 29.7 (27.0-32.0) pg MCHC 35.6 (31.0-37.0) g/dL RDW Std Deviation 39.1 (28.0-62.0) fl RDW Coeff of Peyton 13 (11.0-15.0) % Plt Count 243 (150-400) K/uL MPV 10.20 (7.40-12.00) fL Neut % (Auto) 40.1 L (48.0-80.0) % Lymph % (Auto) 38.8 (16.0-40.0) % Emery % (Auto) 8.8 (0.0-15.0) % Eos % (Auto) 11.0 H (0.0-7.0) % Baso % (Auto) 1.3 (0.0-1.5) % Neut # (Auto) 1.6 (1.4-5.7) K/uL Lymph # (Auto) 1.6 (0.6-2.4) K/uL Emery # (Auto) 0.4 (0.0-0.8) K/uL Eos # (Auto) 0.4 (0.0-0.7) K/uL Baso # (Auto) 0.1 (0.0-0.1) K/uL Nucleated RBC % 0.0 /100WBC Nucleated RBCs # 0 K/uL INR APTT 24.6 (18.6-31.3) SEC Sodium 140 (136-148) mmol/L Potassium 3.8 (3.5-5.1) mmol/L Chloride 105 (98-107) mmol/L Carbon Dioxide 28.6 (21.0-32.0) mmol/L BUN 15 (7.0-18.0) mg/dL Creatinine 0.9 (0.8-1.3) mg/dL Est Cr Clr Drug Dosing 112.65 mL/min Estimated GFR (MDRD) > 60.0 ml/min Glucose 114 H (74-106) mg/dL POC Glucose (70-99) mg/dL Calcium 8.9 (8.5-10.1) mg/dL Total Bilirubin 0.4 (0.2-1.0) mg/dL AST 14 L (15-37) IU/L ALT 15 (14-63) IU/L Alkaline Phosphatase 59 (46-116) U/L Creatine Kinase 67 (26-308) U/L Troponin I (0.000-0.056) ng/mL Total Protein 6.3 L (6.4-8.2) g/dL Albumin 3.6 (3.4-5.0) g/dL Globulin 2.7 (2.6-4.0) g/dL Albumin/Globulin Ratio 1.3 (0.9-1.6) Urine Color Urine Appearance Urine pH (5.0-8.0) Ur Specific [place] (1.001-1.035) Urine Protein (NEGATIVE) mg/dL Urine Glucose (UA) (NEGATIVE) mg/dL Urine Ketones (NEGATIVE) mg/dL Urine Occult Blood (NEGATIVE) Urine Nitrite (NEGATIVE) Urine Bilirubin (NEGATIVE) Urine Urobilinogen (<2.0) EU/dL Ur Leukocyte Esterase (NEGATIVE) Ethyl Alcohol <3 mg/dL 11/02/20 11/02/20 11/02/20 Range/Units 18:05 18:05 18:05 WBC (4.0-11.0) K/uL RBC (4.50-5.90) M/uL Hgb (13.0-17.0) g/dL Hct (38.0-50.0) % MCV (80.0-98.0) fL MCH (27.0-32.0) pg MCHC (31.0-37.0) g/dL RDW Std Deviation (28.0-62.0) fl RDW Coeff of Peyton (11.0-15.0) % Plt Count (150-400) K/uL MPV (7.40-12.00) fL Neut % (Auto) (48.0-80.0) % Lymph % (Auto) (16.0-40.0) % Emery % (Auto) (0.0-15.0) % Eos % (Auto) (0.0-7.0) % Baso % (Auto) (0.0-1.5) % Neut # (Auto) (1.4-5.7) K/uL Lymph # (Auto) (0.6-2.4) K/uL Emery # (Auto) (0.0-0.8) K/uL Eos # (Auto) (0.0-0.7) K/uL Baso # (Auto) (0.0-0.1) K/uL Nucleated RBC % /100WBC Nucleated RBCs # K/uL INR 0.93 APTT (18.6-31.3) SEC Sodium (136-148) mmol/L Potassium (3.5-5.1) mmol/L Chloride (98-107) mmol/L Carbon Dioxide (21.0-32.0) mmol/L BUN (7.0-18.0) mg/dL Creatinine (0.8-1.3) mg/dL Est Cr Clr Drug Dosing mL/min Estimated GFR (MDRD) ml/min Glucose (74-106) mg/dL POC Glucose 113 H (70-99) mg/dL Calcium (8.5-10.1) mg/dL Total Bilirubin (0.2-1.0) mg/dL AST (15-37) IU/L ALT (14-63) IU/L Alkaline Phosphatase (46-116) U/L Creatine Kinase (26-308) U/L Troponin I < 0.050 (0.000-0.056) ng/mL Total Protein (6.4-8.2) g/dL Albumin (3.4-5.0) g/dL Globulin (2.6-4.0) g/dL Albumin/Globulin Ratio (0.9-1.6) Urine Color Urine Appearance Urine pH (5.0-8.0) Ur Specific [place] (1.001-1.035) Urine Protein (NEGATIVE) mg/dL Urine Glucose (UA) (NEGATIVE) mg/dL Urine Ketones (NEGATIVE) mg/dL Urine Occult Blood (NEGATIVE) Urine Nitrite (NEGATIVE) Urine Bilirubin (NEGATIVE) Urine Urobilinogen (<2.0) EU/dL Ur Leukocyte Esterase (NEGATIVE) Ethyl Alcohol mg/dL 07/20/21 Range/Units 19:15 WBC (4.0-11.0) K/uL RBC (4.50-5.90) M/uL Hgb (13.0-17.0) g/dL Hct (38.0-50.0) % MCV (80.0-98.0) fL MCH (27.0-32.0) pg MCHC (31.0-37.0) g/dL RDW Std Deviation (28.0-62.0) fl RDW Coeff of Pey[place] (11.0-15.0) % Plt Count (150-400) K/uL MPV (7.40-12.00) fL Neut % (Auto) (48.0-80.0) % Lymph % (Auto) (16.0-40.0) % Emery % (Auto) (0.0-15.0) % Eos % (Auto) (0.0-7.0) % Baso % (Auto) (0.0-1.5) % Neut # (Auto) (1.4-5.7) K/uL Lymph # (Auto) (0.6-2.4) K/uL [place]y # (Auto) (0.0-0.8) K/uL Eos # (Auto) (0.0-0.7) K/uL Baso # (Auto) (0.0-0.1) K/uL Nucleated RBC % /100WBC Nucleated RBCs # K/uL INR APTT (18.6-31.3) SEC Sodium (136-148) mmol/L Potassium (3.5-5.1) mmol/L Chloride (98-107) mmol/L Carbon Dioxide (21.0-32.0) mmol/L BUN (7.0-18.0) mg/dL Creatinine (0.8-1.3) mg/dL Est Cr Clr Drug Dosing mL/min Estimated GFR (MDRD) ml/min Glucose (74-106) mg/dL POC Glucose (70-99) mg/dL Calcium (8.5-10.1) mg/dL Total Bilirubin (0.2-1.0) mg/dL AST (15-37) IU/L ALT (14-63) IU/L Alkaline Phosphatase (46-116) U/L Creatine Kinase (26-308) U/L Troponin I (0.000-0.056) ng/mL Total Protein (6.4-8.2) g/dL Albumin (3.4-5.0) g/dL Globulin (2.6-4.0) g/dL Albumin/Globulin Ratio (0.9-1.6) Urine Color YELLOW Urine Appearance CLEAR Urine pH 7.0 (5.0-8.0) Ur Specific [place] 1.020 (1.001-1.035) Urine Protein NEGATIVE (NEGATIVE) mg/dL Urine Glucose (UA) NEGATIVE (NEGATIVE) mg/dL Urine Ketones NEGATIVE (NEGATIVE) mg/dL Urine Occult Blood NEGATIVE (NEGATIVE) Urine Nitrite NEGATIVE (NEGATIVE) Urine Bilirubin NEGATIVE (NEGATIVE) Urine Urobilinogen 0.2 (<2.0) EU/dL Ur Leukocyte Esterase NEGATIVE (NEGATIVE) Ethyl Alcohol mg/dL Meds: Medications Discontinued Medications Generic Name Dose Route Start Last Admin Trade Name Freq PRN Reason Stop Dose Admin Ketorolac Tromethamine 30 mg 11/02/20 18:43 11/02/20 19:16 Ketorolac 30 Mg/Ml Sdv IVPUSH 11/02/20 18:44 Not Given ONETIME ONE Ketorolac Tromethamine 30 mg 11/02/20 19:00 11/02/20 19:12 Ketorolac 30 Mg/Ml Sdv IM 11/02/20 19:01 30 mg ONETIME ONE Administration Departure - Departure Time of Disposition: 19:38 Condition: Good Sepsis Event Note (ED) - Focused Exam Vital Signs: Vital Signs Temp Pulse Resp BP Pulse Ox 11/02/20 19:15 60 18 149/96 H 96 11/02/20 17:46 97.1 F 72 18 134/78 98
--- NOTE | 2020-11-02 18:12 | CT ---
DATE: 11/02/2020. CLINICAL HISTORY: Patient with facial droop and left-sided weakness. TECHNIQUE: Standard helical CT image acquisition of the brain was performed. COMPARISON: None available. FINDINGS: There is no acute intracranial hemorrhage. No extra-axial collection, mass effect, or midline shift. Cheng-white matter differentiation is preserved. Ventricles are normal in size and morphology for patient age. The calvarium is unremarkable. The orbits are unremarkable. Mucosal thickening and mild opacification of the ethmoid air cells. The frontal sinuses are hypoplastic. The mastoid air cells are unremarkable. The soft tissues are unremarkable. IMPRESSION: No CT evidence of acute intracranial abnormality. More specifically, no evidence of acute intracranial hemorrhage. Please note that all CT scans at this facility use dose modulation, iterative reconstruction, and/or weight-based dosing when appropriate to reduce radiation dose to as low as reasonably achievable. Dictated by Blaise Mchugh MD @ 11/02/2020 6:11:[address] Blaise Mchugh @ Nov 02 2020 6:11PM
[2020-11-02 18:51] LABS: BLOOD UREA NITROGEN,BUN 15 mg/dL (7.0-18.0); CARBON DIOXIDE,CO2 28.6 mmol/L (21.0-32.0); CHLORIDE,CL 105 mmol/L (98-107); GLUCOSE RANDOM 114 mg/dL (74-106); POTASSIUM,K 3.8 mmol/L (3.5-5.1); SODIUM,NA 140 mmol/L (136-148)
[2020-11-02] MEDS: Ketorolac 30 MG/ML SDV IM ONE (19:12)
--- NOTE | 2020-11-02 19:12 | CR ---
For Patients: As a result of the Century Cures Act, medical imaging exams and procedure reports are released immediately into your electronic medical record. You may view this report before your referring provider. If you have questions, please contact your health care provider. INDICATION: stroke r/o. prior 17-sep-2020 TECHNIQUE: Chest 1 view. COMPARISON: 09/17/20 FINDINGS: Cardiovascular and mediastinum: Heart size and vasculature are normal in caliber and appearance. Mediastinum is within normal limits. Lungs and pleural space: Lungs are clear. No sign of infiltrate or mass. No sign of pleural effusion. No pneumothorax. Bones and soft tissues: No significant findings. IMPRESSION: Unremarkable chest. Dictated by: Christiano Osborne MD @ 11/02/2020 19:12:07 (Electronically Signed)
[2020-11-02] MEDS: Ketorolac 30 MG/ML SDV IVPUSH ONE (19:16)
[2020-11-02 20:25] VITALS: BP 136/78; PULSE 79
== END 2020-11-02 19:50 | disposition home or self-care (01) ==
LOC: MW.ED 17:30
DX: M79.622 Pain in left upper arm (principal); R20.2 Paresthesia of skin
CPT/HCPCS: 36415; 70450; 71045; 80053; 80305; 80307; 81003; 82550; 82947; 84484; 85025; 85610; 85730; 93005; 96372; 99285; J1885

== ENCOUNTER 2023-01-06 20:25 | Emergency (ER) | payer SELFPAY ==
[2023-01-06] MEDS ORDERED: Ketorolac 30 MG/ML SDV IM ONE (21:07)
[2023-01-06] MEDS ORDERED: Amoxicillin/Clavulanate K 875-125 MG Tab PO ONE (21:07)
[2023-01-06 21:42] VITALS: BP 139/80; PULSE 97
== END 2023-01-06 21:43 | disposition home or self-care (01) ==
LOC: MW.ED 20:25
DX: K04.7 Periapical abscess without sinus (principal); Z79.899 Other long term (current) drug therapy
CPT/HCPCS: 96372; 99282; A9270; J1885; 99283

== ENCOUNTER 2023-01-27 01:29 | Emergency (ER) | payer SELFPAY ==
[2023-01-27] MEDS ORDERED: Lidocaine 2% Viscous Solution 15 ML UD PO ONE (02:58)
[2023-01-27 03:19] VITALS: BP 141/77; PULSE 62
== END 2023-01-27 03:18 | disposition home or self-care (01) ==
LOC: MW.ED 01:29
DX: K02.9 Dental caries, unspecified (principal)
CPT/HCPCS: 99282; A9270; 99283

== ENCOUNTER 2023-01-27 18:30 | Emergency (ER) | payer SELFPAY ==
[2023-01-27] MEDS ORDERED: Famotidine 20 MG/2 ML SDV IVPUSH ONE (18:49)
[2023-01-27] MEDS ORDERED: methylPREDNISolone Sodium Succinate 125 MG/2 ML SDV IVPUSH ONE (18:49)
[2023-01-27] MEDS ORDERED: diphenhydrAMINE 50 MG/ML SDV IVPUSH ONE (18:49)
[2023-01-27] MEDS ORDERED: Sodium Chloride 0.9% 1,000 ML IV ONE (19:02)
[2023-01-27] MEDS ORDERED: Morphine 2 MG/ML SYRINGE IVPUSH ONE (19:04)
[2023-01-27] MEDS ORDERED: Iopamidol 755 MG/ML 500 ML Multipack Bottle IVPUSH ONE (19:19)
[2023-01-27 19:28] LABS: EOSINOPHILS PERCENT AUTO 9.3 % (0.0-6.0); HEMOGLOBIN 13.5 g/dL (14.0-18.0); LYMPHOCYTES PERCENT AUTO 23.2 % (24.0-44.0); MEAN CORPUSCULAR HEMOGLOBIN 30.8 pg (28.0-32.0); MEAN CORPUSCULAR HGB CONC 35.5 g/dL (32.0-36.0); MEAN CORPUSCULAR VOLUME 86.8 fL (83.0-99.0); MEAN PLATELET VOLUME 10.2 fL (9.4-12.4); MONOCYTES PERCENT AUTO 6.3 % (0.0-8.0); NEUTROPHILS PERCENT AUTO 59.7 % (41.0-71.0); PLATELET COUNT,PLT 208 K/uL (150-400); RED BLOOD CELL COUNT 4.38 M/uL (4.52-5.90); WHITE BLOOD CELL COUNT,WBC 5.57 K/uL (3.9-11.3)
[2023-01-27 19:29] LABS: BASOPHILS ABSOLUTE AUTO 0.07 K/uL (0.00-0.20); BASOPHILS PERCENT AUTO 1.3 % (0.0-1.0); EOSINOPHILS ABSOLUTE AUTO 0.52 K/uL (0.00-0.45); IMMATURE GRAN ABSOLUTE AUTO 0.01 K/uL (0.00-0.05); IMMATURE GRAN PERCENT AUTO 0.2 % (0.0-0.4); LYMPHOCYTES ABSOLUTE AUTO 1.29 K/uL (1.00-4.80); MONOCYTES ABSOLUTE AUTO 0.35 K/uL (0.00-0.80); NEUTROPHILS ABSOLUTE AUTO 3.33 K/uL (1.80-7.70)
[2023-01-27 19:30] LABS: A/G RATIO 1.7 (0.9-1.6); ALBUMIN 4.3 g/dL (3.4-5.0); BILIRUBIN TOTAL 0.3 mg/dL (0.2-1.0); CALCIUM 8.7 mg/dL (8.5-10.1); CARBON DIOXIDE,CO2 27.5 mmol/L (21.0-32.0); CREATININE 1.1 mg/dL (0.8-1.3); EST CRCL DRUG DOSING (CG) 86.59 mL/min; PROTEIN TOTAL,TP 6.9 g/dL (6.4-8.2)
[2023-01-27] MEDS ORDERED: Morphine 4 MG/ML Syringe IVPUSH ONE (21:21)
[2023-01-27 22:20] VITALS: BP 144/95; PULSE 78
== END 2023-01-27 22:05 | disposition home or self-care (01) ==
LOC: MW.ED 18:30
DX: K02.9 Dental caries, unspecified (principal); F17.210 Nicotine dependence, cigarettes, uncomplicated
CPT/HCPCS: 36415; 70491; 80053; 85025; 96361; 96374; 96375; 96376; 99284; J1200; J2270; J2930; J3490; J7030; Q9967

== ENCOUNTER 2023-06-19 19:20 | Emergency (ER) | payer SELFPAY | END 2023-06-19 20:14 | disposition left against medical advice (07) | LOC: MW.ED 19:20 | DX: Z53.21 Procedure and treatment not carried out due to patient leaving prior to being seen by health care provider (principal) ==

== ENCOUNTER 2023-11-30 20:34 | Emergency (ER) | payer MEDICAID ==
[2023-11-30] MEDS: Amoxicillin/Clavulanate K 875-125 MG Tab PO ONE (21:44)
[2023-11-30] MEDS: Lidocaine 2% Viscous Solution 15 ML UD PO ONE (21:44)
[2023-11-30] MEDS: oxyCODONE 5 MG Tab PO ONE (21:44)
[2023-11-30] MEDS: Benzocaine 20% Topical Spray UD MUCMEM ONE (21:44)
[2023-11-30 22:25] VITALS: BP 152/72; PULSE 82
== END 2023-11-30 22:05 | disposition home or self-care (01) ==
LOC: MW.ED 20:34
DX: K00.7 Teething syndrome (principal); Z75.8 Other problems related to medical facilities and other health care
CPT/HCPCS: 99282; A9270; 99283

== ENCOUNTER 2024-07-06 19:10 | Emergency (ER) | payer SELFPAY ==
[2024-07-06 19:16] VITALS: BP 155/82; PULSE 80
== END 2024-07-06 19:23 | disposition left against medical advice (07) ==
LOC: MW.ED 19:10
DX: Z53.21 Procedure and treatment not carried out due to patient leaving prior to being seen by health care provider (principal)

== ENCOUNTER 2024-12-14 12:43 | Emergency (ER) | payer MEDICAID ==
[2024-12-14 12:54] LABS: BASOPHILS ABSOLUTE AUTO 0.07 K/uL (0.00-0.20); BASOPHILS PERCENT AUTO 0.8 % (0.0-1.0); EOSINOPHILS ABSOLUTE AUTO 0.15 K/uL (0.00-0.45); EOSINOPHILS PERCENT AUTO 1.7 % (0.0-6.0); IMMATURE GRAN ABSOLUTE AUTO 0.02 K/uL (0.00-0.05); IMMATURE GRAN PERCENT AUTO 0.2 % (0.0-0.4); LYMPHOCYTES ABSOLUTE AUTO 1.82 K/uL (1.00-4.80); LYMPHOCYTES PERCENT AUTO 20.5 % (24.0-44.0); MEAN PLATELET VOLUME 10.0 fL (9.4-12.4); MONOCYTES ABSOLUTE AUTO 0.68 K/uL (0.00-0.80); MONOCYTES PERCENT AUTO 7.7 % (0.0-8.0); NEUTROPHILS ABSOLUTE AUTO 6.12 K/uL (1.80-7.70); NEUTROPHILS PERCENT AUTO 69.1 % (41.0-71.0); NRBC ABSOLUTE 0.00 K/uL (0.00-0.02); NRBC PERCENT 0.0 /100WBC (0.0-0.2); PLATELET COUNT,PLT 330 K/uL (150-400); RED BLOOD CELL COUNT 5.22 M/uL (4.52-5.90); WHITE BLOOD CELL COUNT,WBC 8.86 K/uL (3.9-11.3)
[2024-12-14] MEDS: Ketorolac 30 MG/ML SDV IVPUSH ONE (12:54)
[2024-12-14] MEDS: Iopamidol 755 Mg/ML 100 ML Bottle IVPUSH ONE (13:09)
[2024-12-14 13:16] LABS: A/G RATIO 1.2 (0.9-1.6); ALANINE AMINOTRANSFERASE,ALT 39.0 IU/L (14-63); ASPARTATE AMNIOTRANSFERASE,AST 24.0 IU/L (15-37); BILIRUBIN TOTAL 0.4 mg/dL (0.2-1.0); BLOOD UREA NITROGEN,BUN 15.0 mg/dL (7.0-18.0); CARBON DIOXIDE,CO2 29.5 mmol/L (21.0-32.0); CHLORIDE,CL 100.0 mmol/L (98-107); CREATININE 1.2 mg/dL (0.8-1.3); EST CRCL DRUG DOSING (CG) 45.58 mL/min; GLUCOSE RANDOM 114.0 mg/dL (74-106); POTASSIUM,K 4.3 mmol/L (3.5-5.1); PROTEIN TOTAL,TP 8.0 g/dL (6.4-8.2); SODIUM,NA 139.0 mmol/L (136-148)
[2024-12-14 13:24] LABS: ESTIMATED GFR 76.0 mL/min (>60)
[2024-12-14] MEDS ORDERED: Naloxone 0.4 MG/ML SDV IVPUSH PRN (13:41)
[2024-12-14 14:08] LABS: GLUCOSE,URINE NEGATIVE (NEGATIVE); OCCULT BLOOD,URINE LARGE (NEGATIVE)
[2024-12-14 14:12] LABS: APPEARANCE,URINE CLOUDY
[2024-12-14 14:17] LABS: EPITHELIAL CELLS,URINE RARE (NONE-FEW)
[2024-12-14 15:04] VITALS: BP 110/61; PULSE 82
== END 2024-12-14 14:57 | disposition home or self-care (01) ==
LOC: MW.ED 12:43
DX: K85.90 Acute pancreatitis without necrosis or infection, unspecified (principal); N13.2 Hydronephrosis with renal and ureteral calculous obstruction; Z79.899 Other long term (current) drug therapy
CPT/HCPCS: 36415; 74177; 80053; 81001; 83690; 85025; 96361; 96374; 96375; 99284; J1885; J2270; J2765; J7030; Q9967; 99283